=== PATIENT | female | born 1935 | race Caucasian/White ===

== ENCOUNTER 2016-05-03 14:44 | Emergency (ER) | payer MEDICARE, BC ==
[2016-05-03 16:19] LABS: BASO % 0.6 % (0-6); GRAN % 65.7 % (47-80); HEMATOCRIT 36.5 % (35.0-47.0); HEMOGLOBIN 12.3 gm/dl (11.6-16.0); LYMPH % 20.4 % (16-45); MEAN CELL VOLUME 92.4 fl (81-97); MEAN CORPUSCULAR HEMOGLOBIN 31.1 pg (27-33); MEAN CORPUSCULAR HGB CONC 33.7 g/dl (32-36); MEAN PLATELET VOLUME 10.9 fl (7.4-10.4); MONO % 12.3 % (0-9); PLATELET COUNT 187 K/uL (130-400); RED BLOOD COUNT 3.95 M/uL (3.80-5.40); RED CELL DISTRIBUTION WIDTH 13.7 % (11.5-14.5); WHITE BLOOD COUNT W/O DIFF 5.1 K/uL (4.2-12.2)
[2016-05-03 16:31] LABS: ANION GAP 6.3 (7-16); BLOOD UREA NITROGEN 19 mg/dL (7-17); CARBON DIOXIDE 30.7 mmol/L (22-30); CREATININE 0.6 mg/dL (0.52-1.04); EST GLOMERULAR FILTRATION RATE > 60 ml/min; GLUCOSE,RANDOM 80 mg/dL (70-110)
[2016-05-03] MEDS ORDERED: 0.9% SODIUM CHLORIDE 250ML BAG IV ONE (16:47)
[2016-05-03 17:07] LABS: URINE APPEARANCE CLEAR; URINE BILIRUBIN NEGATIVE (NEGATIVE); URINE BLOOD NEGATIVE (NEGATIVE); URINE COLOR YELLOW; URINE GLUCOSE (UA) NEGATIVE (NEGATIVE); URINE KETONE NEGATIVE (NEGATIVE); URINE LEUKOCYTE ESTERASE NEGATIVE (NEGATIVE); URINE NITRITE NEGATIVE (NEGATIVE); URINE PROTEIN NEGATIVE (NEGATIVE); URINE UROBILINOGEN 0.2 E.U./dL (0.20 - 1.00)
--- NOTE | 2016-05-03 17:33 | Emergency Department Record ---
History of Present Illness - General Chief complaint: Female Urogenital Problem Stated complaint: UTI Time Seen by Provider: 05/03/16 15:57 Source: Patient Mode of Arrival: Ambulatory Limitations: No limitations - History of Present Illness Initial comments: pt had bout of confusion this am and daughter is concerned that her sodium might be low. she did start a new medication [remeron]. daughter thought she also might have a uti Onset/Timin -: Days(s) Severity: Mild Improves with: None Worsens with: None Patient : No Associated Symptoms: Other (confusion) - Related Data Sexually active: No Home Medications Medication Instructions Recorded Confirmed Last Taken Aspirin Chewable 81 mg PO QPM 01/20/16 05/03/16 01/20/16 Demeclocycline HCl 300 mg PO DAILY tab 04/29/16 05/03/16 Unknown Allergies Allergy/AdvReac Type Severity Reaction Status Date / Time hydrocodone bitartrate Allergy Severe RAPID Unverified 04/29/16 11:00 [From Vicodin] HEART RATE Iodinated Contrast Media - Allergy Severe DIFFICULTY Unverified 04/29/16 11:00 Oral and BREATHING morphine Allergy Severe DIFFICULTY Unverified 04/29/16 11:00 BREATHING Penicillins Allergy Intermediate RASH Unverified 04/29/16 11:00 meperidine HCl [From Demerol] Allergy Mild VOMITING Unverified 04/29/16 11:00 codeine Allergy Unknown PT UNSURE Unverified 04/29/16 11:00 OF REACTION diazepam [From Valium] AdvReac Severe ALTERED Unverified 04/29/16 11:00 MENTAL STATUS Travel Screening - Travel/Exposure Within Last 30 Days Have you traveled within the last 30 days?: No Review of Systems Reviewed: No additional complaints except as noted below Constitutional: Reports: As per HPI. Denies: Chills, Fever, Malaise, Night sweats, Weakness, Weight change Eyes: Reports: As per HPI. Denies: Eye discharge, Eye pain, Photophobia, Vision change ENT: Reports: As per HPI. Denies: Congestion, Dental pain, Ear pain, Epistaxis , Hearing loss, Throat pain Respiratory: Reports: As per HPI. Denies: Cough, Dyspnea, Hemoptysis, Stridor, Wheezes Cardiovascular: Reports: As per HPI. Denies: Arrhythmia, Chest pain, Dyspnea on exertion, Edema, Murmurs, Orthopnea, Palpitations, Paroxysmal nocturnal dyspnea, Rheumatic Fever, Syncope Endocrine: Reports: As per HPI. Denies: Fatigue, Heat or cold intolerance, Polydipsia, Polyuria Gastrointestinal: Reports: As per HPI. Denies: Abdominal pain, Constipation, Diarrhea, Hematemesis, Hematochezia, Melena, Nausea, Vomiting Genitourinary: Reports: As per HPI. Denies: Abnormal menses, Discharge, Dyspareunia, Dysuria, Frequency, Hematuria, Incontinence, Retention, Urgency Musculoskeletal: Reports: As per HPI. Denies: Arthralgia, Back pain, Gout, Joint swelling, Myalgia, Neck pain Skin: Reports: As per HPI. Denies: Bruising, Change in color, Change in hair/ nails, Lesions, Pruritus, Rash Neurological: Reports: As per HPI. Denies: Abnormal gait, Confusion, Headache, Numbness, Paresthesias, Seizure, Tingling, Tremors, Vertigo, Weakness Psychiatric: Reports: As per HPI. Denies: Anxiety, Auditory hallucinations, Depression, Homicidal thoughts, Suicidal thoughts, Visual hallucinations Hematological/Lymphatic: Reports: As per HPI. Denies: Anemia, Blood Clots, Easy bleeding, Easy bruising, Swollen glands Past Medical History - SOCIAL HISTORY Smoking Status: Never smoker Alcohol Use: None Drug Use: None - RESPIRATORY Hx Respiratory Disorders: Yes Hx Sleep Apnea: Yes - CARDIOVASCULAR Hx Cardio Disorders: Yes Hx Hypertension: Yes - NEURO Hx Neuro Disorders: Yes Hx CVA: Yes (2009) Hx Headaches: Yes Hx Neuropathy: Yes Comment:: "my mind is going out on me"(01-27) - GI Hx GI Disorders: Yes Hx Abdominal Pain: Yes Hx Irritable Bowel: Yes Hx Nausea/Vomiting: Yes Hx Wt Loss/Wt Gain: Yes - Hx Genitourinary Disorders: Yes Hx Renal Disease: Yes (recent) - ENDOCRINE Hx Endocrine Disorders: Yes Hx Thyroid Disease: Yes (low) - MUSCULOSKELETAL Hx Musculoskeletal Disorders: Yes Hx Arthritis: Yes Hx Osteoporosis: Yes - PSYCH Hx Psych Problems: Yes Hx Anxiety: Yes Hx Depression: Yes - HEMATOLOGY/ONCOLOGY Hx Hematology/Oncology Disorders: No Family Medical History Any Significant Family History?: Yes Hx Diabetes: Father Physical Exam - General General Appearance: Alert, Oriented x3, Cooperative, No acute distress - Head Head exam: Normal inspection - Eye Eye exam: Normal appearance, PERRL, EOMI Pupils: Normal accommodation - ENT ENT exam: Normal exam, Mucous membranes moist, Normal external ear exam, Normal orophraynx Ear exam: Normal external inspection. negative: External canal tenderness Nasal Exam: Normal inspection. negative: Discharge, Sinus tenderness Mouth exam: Normal external inspection, Tongue normal Teeth exam: Normal inspection. negative: Dental caries Throat exam: Normal inspection. negative: Tonsillar erythema, Tonsillar exudate - Neck Neck exam: Normal inspection, Full ROM. negative: Tenderness - Respiratory Respiratory exam: Normal lung sounds bilaterally. negative: Respiratory distress - Cardiovascular Cardiovascular Exam: Regular rate, Normal rhythm, Normal heart sounds - GI/Abdominal GI/Abdominal exam: Soft, Normal bowel sounds. negative: Tenderness - Rectal Rectal exam: Deferred - exam: Deferred - Extremities Extremities exam: Normal inspection, Full ROM, Normal capillary refill. negative: Tenderness - Back Back exam: Reports: Normal inspection, Full ROM. Denies: Muscle spasm, Rash noted, Tenderness - Neurological Neurological exam: Alert, Normal gait, Oriented X3, Reflexes normal - Psychiatric Psychiatric exam: Normal affect, Normal mood - Skin Skin exam: Dry, Intact, Normal color, Warm Course Vital Signs 05/03/16 14:58 Temperature 97.8 F Pulse Rate 75 Respiratory 20 Rate Blood Pressure 133/79 Pulse Ox 100 - Reevaluation(s) Reevaluation #1: 05/03/16 17:31 pt is axox3. confusion is cleared. d/w dr phelps. remeron being stopped Medical Decision Making - Lab Data Result diagrams: 05/03/16 16:05 05/03/16 16:05 Lab Results 05/03/16 05/03/16 05/03/16 Range/Units 14:57 16:05 16:05 WBC 5.1 (4.2-12.2) K/uL RBC 3.95 (3.80-5.40) M/uL Hgb 12.3 (11.6-16.0) gm/dl Hct 36.5 (35.0-47.0) % MCV 92.4 (81-97) fl MCH 31.1 (27-33) pg MCHC 33.7 (32-36) g/dl RDW 13.7 (11.5-14.5) % Plt Count 187 (130-400) K/uL MPV 10.9 H (7.4-10.4) fl Gran % 65.7 (47-80) % Lymphocytes % 20.4 (16-45) % Monocytes % 12.3 H (0-9) % Eosinophils % 1.0 (0-6) % Basophils % 0.6 (0-6) % Sodium 128 L (136-145) mmol/L Potassium 4.0 (3.5-5.1) mmol/L Chloride 91 L (98-107) mmol/L Carbon Dioxide 30.7 H (22-30) mmol/L Anion Gap 6.3 L (7-16) BUN 19 H (7-17) mg/dL Creatinine 0.6 (0.52-1.04) mg/dL Estimated GFR > 60 ml/min Random Glucose 80 (70-110) mg/dL Calcium 8.4 L (8.5-10.1) mg/dL Urine Color Cancelled Urine Appearance Cancelled Urine pH Cancelled Ur Specific [place] Cancelled Urine Protein Cancelled Urine Glucose (UA) Cancelled Urine Clinitest Cancelled Urine Ketones Cancelled Urine Blood Cancelled Urine Nitrite Cancelled Urine Bilirubin Cancelled Urine Ictotest Cancelled Prot Sulfosalicylic Acd Cancelled Urine Urobilinogen Cancelled Ur Leukocyte Esterase Cancelled 05/03/16 Range/Units 17:00 WBC (4.2-12.2) K/uL RBC (3.80-5.40) M/uL Hgb (11.6-16.0) gm/dl Hct (35.0-47.0) % MCV (81-97) fl MCH (27-33) pg MCHC (32-36) g/dl RDW (11.5-14.5) % Plt Count (130-400) K/uL MPV (7.4-10.4) fl Gran % (47-80) % Lymphocytes % (16-45) % Monocytes % (0-9) % Eosinophils % (0-6) % Basophils % (0-6) % Sodium (136-145) mmol/L Potassium (3.5-5.1) mmol/L Chloride (98-107) mmol/L Carbon Dioxide (22-30) mmol/L Anion Gap (7-16) BUN (7-17) mg/dL Creatinine (0.52-1.04) mg/dL Estimated GFR ml/min Random Glucose (70-110) mg/dL Calcium (8.5-10.1) mg/dL Urine Color Yellow Urine Appearance Clear Urine pH 7.0 Ur Specific [place] 1.010 Urine Protein Negative Urine Glucose (UA) Negative Urine Clinitest Urine Ketones Negative Urine Blood Negative Urine Nitrite Negative Urine Bilirubin Negative Urine Ictotest Prot Sulfosalicylic Acd Urine Urobilinogen 0.2 Ur Leukocyte Esterase Negative Disposition Disposition: Discharge Clinical Impression: Transient confusion, Medication adverse effect Disposition: Home, Self-Care Condition: (1) Good Instructions: Mirtazapine (By mouth), Altered Mental Status (ED) Additional Instructions: stop mirtazepine. follow up with family doctor. return sooner if worse Forms: Patient Portal Access
== END 2016-05-03 17:45 | disposition home or self-care (01) ==
LOC: ER 14:44
DX: R41.0 Disorientation, unspecified (principal); T43.025A Adverse effect of tetracyclic antidepressants, initial encounter; I10 Essential (primary) hypertension; Z86.73 Personal history of transient ischemic attack (TIA), and cerebral infarction without residual deficits
CPT/HCPCS: 80048; 81003; 85025; 99283

== ENCOUNTER 2016-05-04 06:41 | Inpatient (IN) | payer MEDICARE, BC ==
[2016-05-04 08:21] LABS: BASO % 0.6 % (0-6); EOS % 0.6 % (0-6); GRAN % 77.1 % (47-80); HEMATOCRIT 36.6 % (35.0-47.0); HEMOGLOBIN 12.4 gm/dl (11.6-16.0); LYMPH % 13.9 % (16-45); MEAN CORPUSCULAR HEMOGLOBIN 30.8 pg (27-33); MEAN CORPUSCULAR HGB CONC 33.9 g/dl (32-36); MEAN PLATELET VOLUME 10.9 fl (7.4-10.4); MONO % 7.8 % (0-9); PLATELET COUNT 199 K/uL (130-400); RED BLOOD COUNT 4.02 M/uL (3.80-5.40); RED CELL DISTRIBUTION WIDTH 13.7 % (11.5-14.5); WHITE BLOOD COUNT W/O DIFF 6.3 K/uL (4.2-12.2)
[2016-05-04 08:22] LABS: URINE APPEARANCE CLEAR; URINE BILIRUBIN NEGATIVE (NEGATIVE); URINE BLOOD TRACE-I (NEGATIVE); URINE COLOR YELLOW; URINE GLUCOSE (UA) NEGATIVE (NEGATIVE); URINE KETONE NEGATIVE (NEGATIVE); URINE LEUKOCYTE ESTERASE NEGATIVE (NEGATIVE); URINE NITRITE NEGATIVE (NEGATIVE); URINE PROTEIN NEGATIVE (NEGATIVE); URINE UROBILINOGEN 0.2 E.U./dL (0.20 - 1.00)
--- NOTE | 2016-05-04 08:24 | Emergency Department Record ---
Anxiety - General Chief Complaint: Panic attack Stated Complaint: PANIC ATTACK Time Seen by Provider: 05/04/16 07:08 Source: Patient, EMS Mode of Arrival: EMS Limitations: Altered mental status - History of Present Illness Initial Comments: pt woke up confused. pt recently stopped xanax 2 wks ago and started remeron. pt was here yesterday aracelis confusion which cleared and remeron was stopped. last dose was yesterday am. Complaint: Anxiety Onset/Timin -: Days(s) Place: Home Improves With: Nothing Worsens With: Nothing Associated symptoms: Confusion - Related Data Home Medications: Home Medications Medication Instructions Recorded Confirmed Last Taken Aspirin Chewable 81 mg PO QPM 01/20/16 05/04/16 05/04/16 Demeclocycline HCl 300 mg PO DAILY tab 04/29/16 05/04/16 05/04/16 Allergies/Adverse Reactions: Allergies Allergy/AdvReac Type Severity Reaction Status Date / Time hydrocodone bitartrate Allergy Severe RAPID Unverified 04/29/16 11:00 [From Vicodin] HEART RATE Iodinated Contrast Media - Allergy Severe DIFFICULTY Unverified 04/29/16 11:00 Oral and BREATHING morphine Allergy Severe DIFFICULTY Unverified 04/29/16 11:00 BREATHING Penicillins Allergy Intermediate RASH Unverified 04/29/16 11:00 meperidine HCl [From Demerol] Allergy Mild VOMITING Unverified 04/29/16 11:00 codeine Allergy Unknown PT UNSURE Unverified 04/29/16 11:00 OF REACTION diazepam [From Valium] AdvReac Severe ALTERED Unverified 04/29/16 11:00 MENTAL STATUS Travel Screening - Travel/Exposure Within Last 30 Days Have you traveled within the last 30 days?: No - Travel/Exposure Within Last Year Have you traveled outside the [place] in the last year?: No - Additonal Travel Details Have you been exposed to anyone with a communicable illness?: No Review of Systems Reviewed: No additional complaints except as noted below Constitutional: Reports: As per HPI. Denies: Chills, Fever, Malaise, Night sweats, Weakness, Weight change Eyes: Reports: As per HPI. Denies: Eye discharge, Eye pain, Photophobia, Vision change ENT: Reports: As per HPI. Denies: Congestion, Dental pain, Ear pain, Epistaxis , Hearing loss, Throat pain Respiratory: Reports: As per HPI. Denies: Cough, Dyspnea, Hemoptysis, Stridor, Wheezes Cardiovascular: Reports: As per HPI. Denies: Arrhythmia, Chest pain, Dyspnea on exertion, Edema, Murmurs, Orthopnea, Palpitations, Paroxysmal nocturnal dyspnea, Rheumatic Fever, Syncope Endocrine: Reports: As per HPI. Denies: Fatigue, Heat or cold intolerance, Polydipsia, Polyuria Gastrointestinal: Reports: As per HPI. Denies: Abdominal pain, Constipation, Diarrhea, Hematemesis, Hematochezia, Melena, Nausea, Vomiting Genitourinary: Reports: As per HPI. Denies: Abnormal menses, Discharge, Dyspareunia, Dysuria, Frequency, Hematuria, Incontinence, Retention, Urgency Musculoskeletal: Reports: As per HPI. Denies: Arthralgia, Back pain, Gout, Joint swelling, Myalgia, Neck pain Skin: Reports: As per HPI. Denies: Bruising, Change in color, Change in hair/ nails, Lesions, Pruritus, Rash Neurological: Reports: As per HPI. Denies: Abnormal gait, Confusion, Headache, Numbness, Paresthesias, Seizure, Tingling, Tremors, Vertigo, Weakness Psychiatric: Reports: As per HPI. Denies: Anxiety, Auditory hallucinations, Depression, Homicidal thoughts, Suicidal thoughts, Visual hallucinations Hematological/Lymphatic: Reports: As per HPI. Denies: Anemia, Blood Clots, Easy bleeding, Easy bruising, Swollen glands Past Medical History - SOCIAL HISTORY Smoking Status: Never smoker Alcohol Use: None Drug Use: None - RESPIRATORY Hx Respiratory Disorders: Yes Hx Sleep Apnea: Yes - CARDIOVASCULAR Hx Cardio Disorders: Yes Hx Hypertension: Yes - NEURO Hx Neuro Disorders: Yes Hx CVA: Yes (2009) Hx Headaches: Yes Hx Neuropathy: Yes Comment:: "my mind is going out on me"(01-27) - GI Hx GI Disorders: Yes Hx Abdominal Pain: Yes Hx Irritable Bowel: Yes Hx Nausea/Vomiting: Yes Hx Wt Loss/Wt Gain: Yes - Hx Genitourinary Disorders: Yes Hx Renal Disease: Yes (recent) - ENDOCRINE Hx Endocrine Disorders: Yes Hx Thyroid Disease: Yes (low) - MUSCULOSKELETAL Hx Musculoskeletal Disorders: Yes Hx Arthritis: Yes Hx Osteoporosis: Yes - PSYCH Hx Psych Problems: Yes Hx Anxiety: Yes Hx Depression: Yes - HEMATOLOGY/ONCOLOGY Hx Hematology/Oncology Disorders: No Family Medical History Any Significant Family History?: No Hx Diabetes: Father Physical Exam - General General Appearance: Alert, Cooperative, Moderate distress - Head Head exam: Normal inspection - Eye Eye exam: Normal appearance, PERRL, EOMI Pupils: Normal accommodation - ENT ENT exam: Normal exam, Mucous membranes moist, Normal external ear exam, Normal orophraynx Ear exam: Normal external inspection. negative: External canal tenderness Nasal Exam: Normal inspection. negative: Discharge, Sinus tenderness Mouth exam: Normal external inspection, Tongue normal Teeth exam: Normal inspection. negative: Dental caries Throat exam: Normal inspection. negative: Tonsillar erythema, Tonsillar exudate - Neck Neck exam: Normal inspection, Full ROM. negative: Tenderness - Respiratory Respiratory exam: Normal lung sounds bilaterally. negative: Respiratory distress - Cardiovascular Cardiovascular Exam: Normal rhythm, Normal heart sounds, Tachycardia - GI/Abdominal GI/Abdominal exam: Soft, Normal bowel sounds. negative: Tenderness - Rectal Rectal exam: Deferred - exam: Deferred - Extremities Extremities exam: Normal inspection, Full ROM, Normal capillary refill. negative: Tenderness - Back Back exam: Reports: Normal inspection, Full ROM. Denies: Muscle spasm, Rash noted, Tenderness - Neurological Neurological exam: Alert, CN II-XII intact, Normal gait - Psychiatric Psychiatric exam: Normal affect, Normal mood - Skin Skin exam: Dry, Intact, Normal color, Warm Course Vital Signs 05/04/16 06:42 Temperature 98.4 F Pulse Rate 105 H Respiratory 20 Rate Blood Pressure 168/94 Pulse Ox 96 Medical Decision Making - Management Options MDM Management: Additional Work-up Planned (e.g. ADM/Transfer/OP Study) - Data Complexity MDM Data: Labs Ordered and/or Reviewed, X-Ray Ordered and/or Reviewed - Lab Data Result diagrams: 05/04/16 08:19 05/04/16 08:19 - Radiology Data Radiology results: Report reviewed, Image reviewed Disposition Disposition: Admit Clinical Impression: Change in mental status Qualifiers: Altered mental status type: delirium Qualified Code(s): R41.0 - Disorientation , unspecified Disposition: Still a Patient at [facility] Decision to Admit: Admit from ER Decision to Admit Date: 05/04/16 Decision to Admit Time: 09:51 Forms: Patient Portal Access
[2016-05-04 08:28] LABS: AMPHETAMINE SCREEN URINE NOT DETECTED; BARBITURATE SCREEN URINE NOT DETECTED; BENZODIAZEPINE SCREEN URINE NOT DETECTED; COCAINE SCREEN URINE NOT DETECTED; METHADONE SCREEN URINE NOT DETECTED; METHAMPHETAMINE SCREEN NOT DETECTED; OPIATE SCREEN URINE NOT DETECTED; OXYCODONE SCREEN URINE NOT DETECTED; PHENCYCLIDINE SCREEN URINE NOT DETECTED; PROPOXYPHENE SCREEN URINE NOT DETECTED; THC SCREEN URINE NOT DETECTED; TRICYCLIC ANTIDEPRESSANT SCRN NOT DETECTED
[2016-05-04 08:34] LABS: URINE BACTERIA NONE SEEN; URINE SQUAMOUS EPITHELIAL CELL 0 - 2 /hpf; URINE WBC 0 - 2 (0-2/hpf)
[2016-05-04 08:37] LABS: ALB/GLOB RATIO 1.4 (1.1-1.8); ALBUMIN 4.2 gm/dL (3.5-5.0); ALKALINE PHOSPHATASE 57 U/L (38-126); ALT/SGPT 30 U/L (9-52); ANION GAP 11.6 (7-16); AST/SGOT 35 U/L (14-36); BILIRUBIN,TOTAL 0.44 mg/dL (0.2-1.3); BLOOD UREA NITROGEN 18 mg/dL (7-17); CARBON DIOXIDE 26.4 mmol/L (22-30); CREATININE 0.5 mg/dL (0.52-1.04); EST GLOMERULAR FILTRATION RATE > 60 ml/min; GLUCOSE,RANDOM 93 mg/dL (70-110); TOTAL PROTEIN 7.1 gm/dL (6.3-8.2)
[2016-05-04 08:38] LABS: ACETAMINOPHEN < 10.0 ug/mL (10.0-30.0)
[2016-05-04 08:54] LABS: T3 UPTAKE 36.5 % (23.5-40.5)
[2016-05-04] MEDS ORDERED: LORAZEPAM 2 MG/ML VIAL IV ONE (08:59)
[2016-05-04 09:08] LABS: THYROID STIMULATING HORMONE 1.86 uIU/ml (0.465-4.68)
[2016-05-04] MEDS ORDERED: LEVOTHYROXINE SODIUM 75 MCG TABLET PO SCH (12:10)
--- NOTE | 2016-05-04 12:31 | History & Physical ---
History of Present Illness - Date of Service Date of Service for History & Physical: 05/05/16 - History of Present Illness Admitting Diagnosis: altered mental status History of Present Illness: Laura Sultana is an 81 y/o female well know to practice with episode of confusion yesterday and this am. Came to ED yesterday for change mental status and discharge home with new order to DC Remeron. Returned to ED this am for continued confusion. Known history of hyponatremia and anxiety. Na levels have been low but steady with last Family Practice follow up last week. Travel Screening - Travel/Exposure Within Last 30 Days Have you traveled within the last 30 days?: No - Travel/Exposure Within Last Year Have you traveled outside the [place] in the last year?: No - Additonal Travel Details Have you been exposed to anyone with a communicable illness?: No - Travel Symptoms Symptom Screening: None Review of Systems Reviewed: No additional complaints except as noted below Constitutional: Reports: As per HPI. Denies: Chills, Fever, Malaise, Night sweats, Weakness, Weight change Eyes: Reports: As per HPI. Denies: Eye discharge, Eye pain, Photophobia, Vision change ENT: Reports: As per HPI. Denies: Congestion, Dental pain, Ear pain, Epistaxis , Hearing loss, Throat pain Respiratory: Reports: As per HPI. Denies: Cough, Dyspnea, Hemoptysis, Stridor, Wheezes Cardiovascular: Reports: As per HPI. Denies: Arrhythmia, Chest pain, Dyspnea on exertion, Edema, Murmurs, Orthopnea, Palpitations, Paroxysmal nocturnal dyspnea, Rheumatic Fever, Syncope Endocrine: Reports: As per HPI. Denies: Fatigue, Heat or cold intolerance, Polydipsia, Polyuria Gastrointestinal: Reports: As per HPI. Denies: Abdominal pain, Constipation, Diarrhea, Hematemesis, Hematochezia, Melena, Nausea, Vomiting Genitourinary: Reports: As per HPI. Denies: Abnormal menses, Discharge, Dyspareunia, Dysuria, Frequency, Hematuria, Incontinence, Retention, Urgency Musculoskeletal: Reports: As per HPI. Denies: Arthralgia, Back pain, Gout, Joint swelling, Myalgia, Neck pain Skin: Reports: As per HPI. Denies: Bruising, Change in color, Change in hair/ nails, Lesions, Pruritus, Rash Neurological: Reports: As per HPI. Denies: Abnormal gait, Confusion, Headache, Numbness, Paresthesias, Seizure, Tingling, Tremors, Vertigo, Weakness Psychiatric: Reports: As per HPI. Denies: Anxiety, Auditory hallucinations, Depression, Homicidal thoughts, Suicidal thoughts, Visual hallucinations Hematological/Lymphatic: Reports: As per HPI. Denies: Anemia, Blood Clots, Easy bleeding, Easy bruising, Swollen glands Past Medical History - SOCIAL HISTORY Smoking Status: Never smoker Alcohol Use: None Drug Use: None - RESPIRATORY Hx Respiratory Disorders: Yes Hx Sleep Apnea: Yes - CARDIOVASCULAR Hx Cardio Disorders: Yes Hx Hypertension: Yes - NEURO Hx Neuro Disorders: Yes Hx CVA: Yes (2009) Hx Headaches: Yes Hx Neuropathy: Yes Comment:: "my mind is going out on me"(01-27) - GI Hx GI Disorders: Yes Hx Abdominal Pain: Yes Hx Irritable Bowel: Yes Hx Nausea/Vomiting: Yes Hx Wt Loss/Wt Gain: Yes - Hx Genitourinary Disorders: Yes Hx Renal Disease: Yes (recent) - ENDOCRINE Hx Endocrine Disorders: Yes Hx Thyroid Disease: Yes (low) - MUSCULOSKELETAL Hx Musculoskeletal Disorders: Yes Hx Arthritis: Yes Hx Osteoporosis: Yes - PSYCH Hx Psych Problems: Yes Hx Anxiety: Yes Hx Depression: Yes - HEMATOLOGY/ONCOLOGY Hx Hematology/Oncology Disorders: No Family Medical History Any Significant Family History?: No Hx Diabetes: Father H&P Meds/Allergies - Allergies Allergies: Allergies Allergy/AdvReac Type Severity Reaction Status Date / Time hydrocodone bitartrate Allergy Severe RAPID Unverified 04/29/16 11:00 [From Vicodin] HEART RATE Iodinated Contrast Media - Allergy Severe DIFFICULTY Unverified 04/29/16 11:00 Oral and BREATHING morphine Allergy Severe DIFFICULTY Unverified 04/29/16 11:00 BREATHING Penicillins Allergy Intermediate RASH Unverified 04/29/16 11:00 meperidine HCl [From Demerol] Allergy Mild VOMITING Unverified 04/29/16 11:00 codeine Allergy Unknown PT UNSURE Unverified 04/29/16 11:00 OF REACTION diazepam [From Valium] AdvReac Severe ALTERED Unverified 04/29/16 11:00 MENTAL STATUS - Home Medications Home Medications Medication Instructions Recorded Confirmed Last Taken Aspirin Chewable 81 mg PO QPM 01/20/16 05/04/16 05/04/16 Demeclocycline HCl 300 mg PO DAILY tab 04/29/16 05/04/16 05/04/16 - Active Medications Active Medications: Current Medications Acetaminophen (Tylenol 500mg Tab) 1,000 mg PO Q6H PRN PRN Reason: PAIN/TEMP Aspirin (Aspirin Chewable) 81 mg PO QPM [facility] Levothyroxine Sodium (Synthroid) 75 mcg PO QD [facility] Physical Exam - General General Appearance: Alert, Oriented x3, Cooperative, Moderate distress, Other ( altered sense of reality, delerius) Limitations: Altered mental status - Head Head exam: Normal inspection - Eye Eye exam: Normal appearance, PERRL, EOMI Pupils: Normal accommodation - ENT ENT exam: Normal exam, Mucous membranes moist, Normal external ear exam, Normal orophraynx Ear exam: Normal external inspection. negative: External canal tenderness Nasal Exam: Normal inspection. negative: Discharge, Sinus tenderness Mouth exam: Normal external inspection, Tongue normal Teeth exam: Normal inspection. negative: Dental caries Throat exam: Normal inspection. negative: Tonsillar erythema, Tonsillar exudate - Neck Neck exam: Normal inspection, Full ROM. negative: Tenderness - Respiratory Respiratory exam: Normal lung sounds bilaterally. negative: Respiratory distress - Cardiovascular Cardiovascular Exam: Normal rhythm, Normal heart sounds, Tachycardia - GI/Abdominal GI/Abdominal exam: Soft, Normal bowel sounds. negative: Tenderness - Rectal Rectal exam: Deferred - exam: Deferred - Extremities Extremities exam: Normal inspection, Full ROM, Normal capillary refill. negative: Tenderness - Back Back exam: Reports: Normal inspection, Full ROM. Denies: Muscle spasm, Rash noted, Tenderness - Neurological Neurological exam: Alert, CN II-XII intact, Normal gait - Psychiatric Psychiatric exam: Normal affect, Normal mood - Skin Skin exam: Dry, Intact, Normal color, Warm Results - Labs Result Diagrams: 05/04/16 08:19 05/05/16 04:55 - Imaging and Cardiology CT scan - head Status: Report reviewed (1- chronic atrophy, 2- no acute intracranial process) VTE H&P Assessment - Risk for VTE Risk for VTE: Yes Risk Level: Low Risk Assessment Date: 05/04/16 Risk Assessment Time: 12:33 VTE Orders Placed or Will Be Placed: Yes Plan - Inpatient Certification Inpatient Certification: Admit to inpatient care: Based on my medical assessment, after consideration of patient's risk factors (age, co-morbidities and patient presenting symptoms and acuity), I expect that this patient will remain in the hospital greater than or equal to two midnights and that the services needed warrant inpatient care because: Patient Risk Factors: [advanced age, acute mental status changes, medication adverse reaction] Estimated length of stay: [48-72 hrs] The patient may reasonably be expected to be discharged or transferred to a hospital within 96 hours after admission to [facility]. Services needed: [medication monitoring] Post hospital care (if known): [] I certify that my determination is in accordance with my understanding of Medicare requirements for reasonable and necessary inpatient services. 05/04/16 12:34 - Detailed Diagnosis and Plan (1) Change in mental status Current Visit: Yes Status: Acute Qualifiers: Altered mental status type: delirium Qualified Code(s): R41.0 - Disorientation, unspecified Base Code: R41.82 - ALTERED MENTAL STATUS, UNSPECIFIED Comment: 05/04/16 Likely not tolerating Remeron, will not restart Has tolerated Xanax .25mg BID PRN without adverse reaction for anxiety- Benefit of use outweighs risk Head CT with chronic appearing atrophy, no acute intracranial process (2) Hyponatremia Current Visit: Yes Status: Chronic Base Code: E87.1 - HYPO-OSMOLALITY AND HYPONATREMIA Comment: 05/04/16 Chronically low Na 131 today Repeat labs in am (3) Hypothyroidism Current Visit: Yes Status: Chronic Base Code: E03.9 - HYPOTHYROIDISM, UNSPECIFIED Comment: 05/05/16 chronic T4 12.00 in ER with normal TSH Will restart Levothyroixine 50mcg QD T4 this am (4) DVT prophylaxis Current Visit: Yes Status: Acute Base Code: [id number] - Comment: 04/30/16 SCD ordered (5) DNR (do not resuscitate) Current Visit: Yes Status: Acute Base Code: Z66 - DO NOT RESUSCITATE
[2016-05-04] MEDS: ALPRAZOLAM 0.25 MG TABLET PO PRN ×2 (15:00→21:41)
[2016-05-04] MEDS: ACETAMINOPHEN 500 MG TABLET PO PRN (15:00)
[2016-05-04] MEDS ORDERED: ASPIRIN 81 MG TABEC PO SCH (22:00)
[2016-05-05] MEDS: ACETAMINOPHEN 500 MG TABLET PO PRN ×2 (03:50→09:32)
[2016-05-05] MEDS ORDERED: LABETALOL HCL 5MG/ML, 20ML VIAL IV ONE (04:51)
[2016-05-05 05:27] LABS: ALB/GLOB RATIO 1.4 (1.1-1.8); ALBUMIN 4.3 gm/dL (3.5-5.0); ALKALINE PHOSPHATASE 57 U/L (38-126); ALT/SGPT 32 U/L (9-52); AST/SGOT 41 U/L (14-36); BILIRUBIN,TOTAL 0.59 mg/dL (0.2-1.3); BLOOD UREA NITROGEN 13 mg/dL (7-17); CREATININE 0.5 mg/dL (0.52-1.04); EST GLOMERULAR FILTRATION RATE > 60 ml/min; GLUCOSE,RANDOM 91 mg/dL (70-110); TOTAL PROTEIN 7.3 gm/dL (6.3-8.2)
--- NOTE | 2016-05-05 07:29 | CT SCAN REPORT ---
EXAM: HEAD CT WITHOUT CONTRAST HISTORY: CONFUSION, PATIENT NOT MAKING ANY SENSE. TECHNIQUE: Axial CT scan of the head was performed without IV contrast. Comparison: Head CT dated 01/24/16. FINDINGS: No definite acute intracranial hemorrhage is identified. No focal mass effect or midline shift apparent. Generalized atrophy with chronic appearing deep white matter changes as before, nonspecific, but likely representing some chronic small vessel deep white matter ischemic disease. No definite acute infarct or intracranial mass lesion is seen. No depressed calvarial fracture evident. Some membrane thickening in the sphenoid sinus and also in the left ethmoid sinus. No depressed calvarial fracture is evident. IMPRESSION: 1. GENERALIZED ATROPHY WITH CHRONIC APPEARING DEEP WHITE MATTER CHANGES. 2. NO DEFINITE ACUTE INTRACRANIAL HEMORRHAGE OR FOCAL MASS EFFECT EVIDENT. 3. SOME MEMBRANE THICKENING IN THE SPHENOID AND LEFT ETHMOID SINUSES. JOB NUMBER: [id number] MTDD
[2016-05-05] MEDS: ALPRAZOLAM 0.25 MG TABLET PO PRN (09:35)
[2016-05-05] MEDS ORDERED: LEVOTHYROXINE SODIUM 75 MCG TABLET PO SCH (10:00)
--- NOTE | 2016-05-05 11:14 | Physician Progress Note ---
Subjective - Date Date of Physician Progress Note: 05/05/16 - Subjective Subjective Comment: Continues with altered mental status with statements such as " Albin Cruz is after my credit cards because he needs money", continues to refer to Dr Ma as her "sister", verbalizes wanting to "walk out of here" to look for an apartment in [place], accusing son of coming to the ER drunk and being kicked out (she was brought in by EMS). Objective - Multidiciplinary Team Multidiciplinary Team: Nursing, Social Work - Vital Signs Vital Signs: Vital Signs - Last 24 Hrs Temp Pulse Pulse Pulse Resp BP BP 05/05/16 09:00 82 89 20 05/05/16 08:42 98.3 F 82 20 146/92 05/05/16 04:00 89 20 189/114 05/04/16 20:47 98.2 F 71 18 121/61 05/04/16 20:28 20 05/04/16 12:37 87 24 05/04/16 11:25 97.7 F 102 H 16 129/75 Pulse Ox 05/05/16 09:00 05/05/16 08:42 97 05/05/16 04:00 99 05/04/16 20:47 98 05/04/16 20:28 05/04/16 12:37 05/04/16 11:25 95 - General General Appearance: Alert, Cooperative, Moderate distress (oriented to person only, is emotionally distressed, anxious), Other (altered sense of reality, delerius) Limitations: Altered mental status - Head Head exam: Normal inspection Head exam detail: Contusion (mild contusion right side of forehead near mandaeism, age of injury unknown, no documented falls since admission). negative: Hematoma , Laceration, [place] eyes - Eye Eye exam: Normal appearance, PERRL, EOMI Pupils: Normal accommodation - ENT ENT exam: Normal exam, Mucous membranes moist, Normal external ear exam, Normal orophraynx Ear exam: Normal external inspection. negative: External canal tenderness Nasal Exam: Normal inspection. negative: Discharge, Sinus tenderness Mouth exam: Normal external inspection, Tongue normal Teeth exam: Normal inspection. negative: Dental caries Throat exam: Normal inspection. negative: Tonsillar erythema, Tonsillar exudate - Neck Neck exam: Normal inspection, Full ROM. negative: Tenderness - Respiratory Respiratory exam: Normal lung sounds bilaterally. negative: Respiratory distress - Cardiovascular Cardiovascular Exam: Normal rhythm, Normal heart sounds, Tachycardia - GI/Abdominal GI/Abdominal exam: Soft, Normal bowel sounds. negative: Tenderness - Rectal Rectal exam: Deferred - exam: Deferred - Extremities Extremities exam: Normal inspection, Full ROM, Normal capillary refill. negative: Tenderness - Back Back exam: Reports: Normal inspection, Full ROM. Denies: Muscle spasm, Rash noted, Tenderness - Neurological Neurological exam: Alert, CN II-XII intact, Normal gait - Psychiatric Psychiatric exam: Agitated, Anxious - Skin Skin exam: Dry, Intact, Normal color, Warm Assessment and Plan - Assessment and Plan (1) Change in mental status Current Visit: Yes Status: Acute Qualifiers: Altered mental status type: delirium Qualified Code(s): R41.0 - Disorientation, unspecified Base Code: R41.82 - ALTERED MENTAL STATUS, UNSPECIFIED Comment: 05/05/16 Continued alteration mental status, poor safety awareness, inablity to perform ADLs. Was started on Remeron last week to aide in improving appetite with a safer medication profile for the elderly Likely is experiencing medication effect from that as medical etiology has been ruled out with continued change in mental status. CT head performed in ER shows atrophy with likely an undiagnsed underlying dementia. Anticipate discharge to [facility] for further management (2) Hyponatremia Current Visit: Yes Status: Chronic Base Code: E87.1 - HYPO-OSMOLALITY AND HYPONATREMIA Comment: 05/05/16 Chronically low, medical etiology has been ruled out as cause for change in mental status, has in the past tolerated low sodium levels with no change in mentation. Na today 132 (3) Hypothyroidism Current Visit: Yes Status: Chronic Base Code: E03.9 - HYPOTHYROIDISM, UNSPECIFIED Comment: 05/05/16 chronic T4 12.00 in ER with normal TSH Will restart Levothyroixine 50mcg QD T4 this am normal (4) DVT prophylaxis Current Visit: Yes Status: Acute Base Code: [id number] - Comment: 04/30/16 SCD ordered (5) DNR (do not resuscitate) Current Visit: Yes Status: Acute Base Code: Z66 - DO NOT RESUSCITATE Results - Labs Result Diagrams: 05/04/16 08:19 05/05/16 04:55 Labs Last 24 Hours: Laboratory Results - last 24 hr 05/05/16 05/05/16 04:55 04:55 Sodium 132 L Potassium 4.0 Chloride 92 L Carbon Dioxide 28.0 Anion Gap 12.0 BUN 13 Creatinine 0.5 L Estimated GFR > 60 Random Glucose 91 Calcium 9.2 Total Bilirubin 0.59 AST 41 H ALT 32 Alkaline Phosphatase 57 Total Protein 7.3 Albumin 4.3 Globulin 3.0 Albumin/Globulin Ratio 1.4 Thyroxine (T4) 9.96 DVT/PE Assessment - Risk for VTE Risk for VTE: No Risk Level: Low Risk Assessment Date: 05/04/16 Risk Assessment Time: 12:33 VTE Orders Placed or Will Be Placed: Yes - Active Medicaitons Current Medications: Current Medications Acetaminophen (Tylenol 500mg Tab) 1,000 mg PO Q6H PRN PRN Reason: PAIN/TEMP Last Admin: 05/05/16 09:32 Dose: 1,000 mg Alprazolam (Xanax) 0.25 mg PO BID PRN PRN Reason: ANXIETY Last Admin: 05/05/16 09:35 Dose: 0.25 mg Aspirin (Ecotrin (Ec)) 81 mg PO QHS [facility] Last Admin: 05/04/16 21:42 Dose: 81 mg Levothyroxine Sodium (Synthroid) 75 mcg PO DAILYTHY [facility] Last Admin: 05/05/16 10:30 Dose: 75 mcg AMI Plan - Labs Result Diagrams: 05/04/16 08:19 05/05/16 04:55
--- NOTE | 2016-05-05 14:25 | Discharge Summary ---
Providers Discharge Summary Date: 05/05/16 Date of admission: 05/04/16 11:21 Expected Date of Discharge: 05/05/16 Attending physician: [place] Physical Exam - Vital Signs Vital Signs: Vital Signs - Last 24 Hrs Temp Pulse Pulse Resp BP BP Pulse Ox 05/05/16 09:00 82 89 20 05/05/16 08:42 98.3 F 82 20 146/92 97 05/05/16 04:00 89 20 189/114 99 05/04/16 20:47 98.2 F 71 18 121/61 98 05/04/16 20:28 20 - General General Appearance: Alert, Cooperative, Moderate distress (oriented to person only, is emotionally distressed, anxious), Other (altered sense of reality, delerius) Limitations: Altered mental status - Head Head exam: Normal inspection Head exam detail: Contusion (mild contusion right side of forehead near mandaeism, age of injury unknown, no documented falls since admission). negative: Hematoma , Laceration, [place] eyes - Eye Eye exam: Normal appearance, PERRL, EOMI Pupils: Normal accommodation - ENT ENT exam: Normal exam, Mucous membranes moist, Normal external ear exam, Normal orophraynx Ear exam: Normal external inspection. negative: External canal tenderness Nasal Exam: Normal inspection. negative: Discharge, Sinus tenderness Mouth exam: Normal external inspection, Tongue normal Teeth exam: Normal inspection. negative: Dental caries Throat exam: Normal inspection. negative: Tonsillar erythema, Tonsillar exudate - Neck Neck exam: Normal inspection, Full ROM. negative: Tenderness - Respiratory Respiratory exam: Normal lung sounds bilaterally. negative: Respiratory distress - Cardiovascular Cardiovascular Exam: Normal rhythm, Normal heart sounds, Tachycardia - GI/Abdominal GI/Abdominal exam: Soft, Normal bowel sounds. negative: Tenderness - Rectal Rectal exam: Deferred - exam: Deferred - Extremities Extremities exam: Normal inspection, Full ROM, Normal capillary refill. negative: Tenderness - Back Back exam: Reports: Normal inspection, Full ROM. Denies: Muscle spasm, Rash noted, Tenderness - Neurological Neurological exam: Alert, CN II-XII intact, Normal gait - Psychiatric Psychiatric exam: Agitated, Anxious - Skin Skin exam: Dry, Intact, Normal color, Warm Hospitalization - Hospitalization Admission Diagnosis: altered mental status - Problem List/Discharge Diagnosis (1) Change in mental status Current Visit: Yes Status: Acute Discharge Diagnosis: Altered mental status type: delirium Qualified Code(s): R41.0 - Disorientation, unspecified Base Code: R41.82 - ALTERED MENTAL STATUS, UNSPECIFIED Comment: 05/05/16 Continued alteration mental status, poor safety awareness, inablity to perform ADLs. Was started on Remeron last week to aide in improving appetite with a safer medication profile for the elderly. Likely is experiencing medication effect from that as medical etiology has been ruled out with continued change in mental status. CT head performed in ER shows atrophy with likely an undiagnsed underlying dementia. Daughter mentioned today that patient has been declining for 9 months (this was not previously brought up in clinic or inpatient yesterday). Will discharge to [facility] for further management. (2) Hyponatremia Current Visit: Yes Status: Chronic Base Code: E87.1 - HYPO-OSMOLALITY AND HYPONATREMIA Comment: 05/05/16 Chronically low, medical etiology has been ruled out as cause for change in mental status, has in the past tolerated low sodium levels with no change in mentation. Na today 132. See nephrology outpatient. (3) Hypothyroidism Current Visit: Yes Status: Chronic Base Code: E03.9 - HYPOTHYROIDISM, UNSPECIFIED Comment: 05/05/16 chronic continue Levothyroixine 50mcg QD (4) Medication adverse effect Current Visit: No Status: Acute Base Code: T88.7XXA - UNSP ADVERSE EFFECT OF DRUG OR MEDICAMENT, INIT ENCNTR Comment: 05/05/16- patient is sensitive to any new medication changes. Recent change included starting remeron to increase appetite, improve mood, and help with sleep. Stopped this medication two days ago. - Hospitalization Course Disposition: Inpatient Rehab Facility Abnormal Labs: Abnormal Lab Results 05/05/16 Range/Units 04:55 Sodium 132 L (136-145) mmol/L Chloride 92 L (98-107) mmol/L Creatinine 0.5 L (0.52-1.04) mg/dL AST 41 H (14-36) U/L Condition at Discharge: (3) Guarded Discharge Medications - Discharge Medications Home Medications: Ambulatory Orders Aspirin Chewable 81 mg PO QPM 01/20/16 [Last Taken 05/04/16] Demeclocycline HCl 300 mg PO DAILY tab 04/29/16 [Last Taken 05/04/16] Acetaminophen [Tylenol 500Mg Tab] 1,000 mg PO Q6H PRN #0 tablet 05/05/16 [Last Taken Unknown] Levothyroxine Sodium [Synthroid] 75 mcg PO DAILYTHY tablet 05/05/16 [Last Taken Unknown] Discharge Plan - Discharge Instructions Activity at Discharge: As Per Physical Therapy Diet at Discharge: Advance to Usual Diet
== END 2016-05-05 15:40 | DRG 948 ==
LOC: ER 06:41 → MEDSURG 11:21
PROVIDERS: ADMIT Family Medicine; ATTEND Family Medicine
DX: R41.82 Altered mental status, unspecified (principal); E87.1 Hypo-osmolality and hyponatremia; T50.905A Adverse effect of unspecified drugs, medicaments and biological substances, initial encounter; E03.9 Hypothyroidism, unspecified; Z66 Do not resuscitate
CPT/HCPCS: 93041; 99285 ×2; 94760; 85025; 80053; 36416; 81001; 84443; 84479; 84436; 70450; G0480 ×2; G0477; J2060; 80305; 80320; 80329; 99223

== ENCOUNTER 2017-06-28 16:50 | Emergency (ER) | payer MEDICARE, BC ==
--- NOTE | 2017-06-28 17:10 | Emergency Department Record ---
History of Present Illness - General Chief Complaint: Fall Injury Stated Complaint: FALL Time Seen by Provider: 06/28/17 17:05 Source: Patient Mode of Arrival: EMS Limitations: No limitations - History of Present Illness Initial Comments: 82 yo female presents after a fall off a stool from the seated position at a local care home. She was playing a game called bat the balloon. She lost her balance falling backward. She hit her head. No LOC. She denies any current pain. She is alert and conversational. She does have a history of dementia. No nausea or vomiting. No lacerations. No complaints of joint pains. She does say her hips "feel tight". No bleeding or lacerations. No anticoagulants. Complaint: Fall -: Hour(s) (1) Fall From: Chair When Fall Occurred: Unsure Fall Witnessed: No Place Fall Occurred: Home Loss of Consciousness: Unsure Prolonged Down Time?: No Location: Back, Other Severity: Moderate Severity scale (1-10): 6 Quality: Aching Associated Symptoms: Denies - [place] Coma Scale Eye Response: (4) Open spontaneously Motor Response: (6) Obeys commands Verbal Response: (5) Oriented [place] Total: 15 - Related Data Home Medications Medication Instructions Recorded Confirmed Last Taken Ascorbic Acid [Vitamin C] 1,000 mg PO DAILY 06/28/17 06/28/17 06/27/17 Ferrous Sulfate 325 mg PO DAILY 06/28/17 06/28/17 06/27/17 Levothyroxine Sodium [Synthroid] 100 mcg PO DAILYTHY 06/28/17 06/28/17 06/28/17 Sodium Chloride 1 gm PO DAILY 06/28/17 06/28/17 06/27/17 Previous Rx's Medication Instructions Recorded Acetaminophen [Tylenol 500Mg Tab] 1,000 mg PO Q6H PRN #0 tablet 05/05/16 Allergies Allergy/AdvReac Type Severity Reaction Status Date / Time hydrocodone bitartrate Allergy Severe RAPID Verified 06/28/17 16:58 [From Vicodin] HEART RATE Iodinated Contrast- Oral and Allergy Severe DIFFICULTY Verified 06/28/17 16:58 IV Dye BREATHING [Iodinated Contrast Media - Oral and] morphine Allergy Severe DIFFICULTY Verified 06/28/17 16:58 BREATHING Penicillins Allergy Intermediate RASH Verified 06/28/17 16:58 meperidine HCl [From Demerol] Allergy Mild VOMITING Verified 06/28/17 16:58 codeine Allergy Unknown PT UNSURE Verified 06/28/17 16:58 OF REACTION diazepam [From Valium] AdvReac Severe ALTERED Verified 06/28/17 16:58 MENTAL STATUS Travel Screening - Travel/Exposure Within Last 30 Days Have you traveled within the last 30 days?: No Review of Systems Constitutional: Denies: Chills, Fever, Malaise Eyes: Denies: Eye discharge, Eye pain, Vision change ENT: Denies: Congestion, Throat pain Respiratory: Denies: Cough Cardiovascular: Denies: Chest pain, Syncope Endocrine: Denies: Fatigue Gastrointestinal: Denies: Abdominal pain, Diarrhea, Nausea, Vomiting Genitourinary: Denies: Dysuria, Urgency Musculoskeletal: Denies: Arthralgia, Back pain, Joint swelling, Myalgia Skin: Denies: Bruising, Change in color, Rash Neurological: Reports: Confusion (dementia but she is pleasant, conversatonal, states she remembers the game being played.). Denies: Headache, Numbness, Paresthesias, Tingling, Vertigo, Weakness Psychiatric: Denies: Anxiety Hematological/Lymphatic: Denies: Blood Clots, Easy bleeding, Easy bruising Past Medical History - SOCIAL HISTORY Smoking Status: Never smoker Alcohol Use: None Drug Use: None - RESPIRATORY Hx Respiratory Disorders: Yes Hx Sleep Apnea: Yes - CARDIOVASCULAR Hx Cardio Disorders: Yes Hx Hypertension: Yes - NEURO Hx Neuro Disorders: Yes Hx CVA: Yes (2009) Hx Headaches: Yes Hx Neuropathy: Yes Comment:: "my mind is going out on me"(01-27) - GI Hx GI Disorders: Yes Hx Abdominal Pain: Yes Hx Irritable Bowel: Yes Hx Nausea/Vomiting: Yes Hx Wt Loss/Wt Gain: Yes - Hx Genitourinary Disorders: Yes Hx Renal Disease: Yes - ENDOCRINE Hx Endocrine Disorders: Yes Hx Thyroid Disease: Yes (low) - MUSCULOSKELETAL Hx Musculoskeletal Disorders: Yes Hx Arthritis: Yes Hx Osteoporosis: Yes - PSYCH Hx Psych Problems: Yes Hx Anxiety: Yes Hx Depression: Yes - HEMATOLOGY/ONCOLOGY Hx Hematology/Oncology Disorders: No Family Medical History Any Significant Family History?: Yes Hx Diabetes: Father Physical Exam - General General Appearance: Alert, Oriented x3, Cooperative, No acute distress Limitations: No limitations - Head Head exam: Atraumatic, Normocephalic, Normal inspection Head exam detail: negative: Abrasion, Contusion, Kay's sign, General tenderness, Hematoma, Laceration - Eye Eye exam: Normal appearance, PERRL. negative: Conjunctival injection, Periorbital swelling, Periorbital tenderness, Scleral icterus - ENT ENT exam: Normal exam, Mucous membranes moist, Normal orophraynx Ear exam: Normal external inspection Nasal Exam: Normal inspection Mouth exam: Normal external inspection Teeth exam: Normal inspection Throat exam: Normal inspection - Neck Neck exam: Normal inspection, Full ROM. negative: Tenderness - Respiratory Respiratory exam: Normal lung sounds bilaterally. negative: Accessory muscle use, Chest wall tenderness, Decreased breath sounds, Prolonged expiratory, Respiratory distress, Rhonchi, Stridor, Wheezes - Cardiovascular Cardiovascular Exam: Regular rate, Normal rhythm, Normal heart sounds Peripheral Pulses: 2+: Radial (R), Radial (L) - GI/Abdominal GI/Abdominal exam: Soft. negative: Distended, Guarding, Rebound, Rigid, Tenderness - Rectal Rectal exam: Deferred - exam: Deferred - Extremities Extremities exam: Normal inspection, Full ROM, Normal capillary refill, Other ( hips non tender, full ROM of both hips, no signs of pain). negative: Calf tenderness, Joint swelling, Pedal edema, Tenderness - Back Back exam: Reports: Normal inspection (no bruising or abrasions), Full ROM, Other (she sits up on her own with minimal assistance). Denies: CVA tenderness (R), CVA tenderness (L), Muscle spasm, Paraspinal tenderness, Rash noted, Tenderness, Vertebral tenderness - Neurological Neurological exam: Alert, CN II-XII intact, Other (Memory deficits, baseline per reports). negative: Motor sensory deficit - Psychiatric Psychiatric exam: Normal affect, Normal mood. negative: Agitated, Anxious - Skin Skin exam: Dry, Intact, Normal color, Warm Course Vital Signs 06/28/17 16:58 Temperature 97.9 F Pulse Rate 97 H Respiratory 18 Rate Blood Pressure 184/97 Pulse Ox 99 - Reevaluation(s) Reevaluation #1: The CT scans of the head and cervical spin were reviewed. Multiple chronic findings. No acute injuries from the fall. 06/28/17 18:43 06/28/17 18:50 No acute fracture of the pelvic or hips The patient denies any pain and is able to weight bear without pain Disposition Disposition: Discharge Clinical Impression: Fall Qualifiers: Encounter type: initial encounter Qualified Code(s): W19.XXXA - Unspecified fall, initial encounter Head contusion Qualifiers: Encounter type: initial encounter Contusion of head detail: scalp Qualified Code(s): S00.03XA - Contusion of scalp, initial encounter Disposition: Home, Self-Care Condition: (1) Good Instructions: Fall Prevention for Older Adults (ED) Additional Instructions: Return to the ED if you have any pain, headache, dizziness or concerns. Forms: Patient Portal Access Time of Disposition: 18:52 Quality - Quality Measures Quality Measures: N/A - Blood Pressure Screening Does Patient Have Any of the Following: No Blood Pressure Classification: Hypertensive Reading Systolic Measurement: 184 Diastolic Measurement: 97 Screening for High Blood Pressure: < Pre-Hypertensive BP, F/U Documented > [ [id number]] Pre-Hypertensive Follow-up Interventions: Referral to alternative/primary care provider.
--- NOTE | 2017-06-29 14:47 | CT SCAN REPORT ---
EXAM: CT OF THE HEAD WITHOUT CONTRAST HISTORY: FALL OFF A STOOL AT RESIDENTIAL. TECHNIQUE: Routine noncontrast CT examination of the head was obtained. Comparison: CT of the head without contrast dated 11/13/04. FINDINGS: There is mild dilatation of the subarachnoid spaces. The ventricles are at the upper limits of normal in size. Mild to moderate periventricular and subcortical white matter lucencies are scattered in each cerebral hemisphere , relatively symmetrically. These are nonspecific, but likely areas of chronic small vessel ischemia. No other area of abnormally increased or decreased attenuation is noted throughout the brain substance. No abnormal extraaxial fluid collection is seen. No skull fracture is identified. There is fluid signal within the sphenoid sinuses consistent with sinusitis. There is mild mucosal thickening within a few left ethmoid air cells and the inferior aspect of the left frontal sinus. Post cataract surgery changes are noted bilaterally. The orbits as visualized are otherwise unremarkable. IMPRESSION: 1. NO CT EVIDENCE OF AN ACUTE INTRACRANIAL ABNORMALITY NOR SKULL FRACTURE. 2. GENERALIZED ATROPHY. 3. MILD TO MODERATE WHITE MATTER LUCENCIES IN EACH CEREBRAL HEMISPHERE ARE NONSPECIFIC, BUT LIKELY AREAS OF CHRONIC SMALL VESSEL ISCHEMIA. 4. BILATERAL SPHENOID SINUSITIS. JOB NUMBER: [id number] [facility]
--- NOTE | 2017-06-29 14:56 | CT SCAN REPORT ---
EXAM: CT OF THE CERVICAL SPINE WITHOUT CONTRAST HISTORY: FALL OFF STOOL TODAY. TECHNIQUE: Thin collimation helical CT examination of the cervical spine was performed in the axial plane without intravenous contrast. Coronal and sagittal reformatted images are generated and reviewed. Comparison: CT of the cervical spine without contrast dated 01/24/16. FINDINGS: There is mild diffuse osteopenia. Minimal anterolisthesis of C4 on C5 is identified slightly more pronounced in the interval. Minor retrolisthesis of C5 on C36 is stable. The vertebral bodies are otherwise normal in alignment and height. No acute fracture, destructive bone lesion or prevertebral soft tissue swelling. Multilevel degenerative disk/degenerative end plate changes are identified primarily mild in degree though those at the C5-C6 level are mild to moderate. Posterior disk bulging and end plate spurring at the C5-C6 level causes borderline central canal stenosis. No other evidence of osseous cervical spinal stenosis. Multilevel bilateral facet arthropathy is identified most pronounced superiorly on the right where the changes are advanced. Multilevel bilateral neural foraminal narrowing redemonstrated, left greater than right secondary to uncovertebral joint and facet joint spurring. There is sphenoid sinusitis. A retention cyst is demonstrated in the floor of the right maxillary sinus. There is mild atherosclerotic calcification of the carotid bifurcations. No cervical mass nor adenopathy. Moderate biapical pleural and parenchymal scarring. IMPRESSION: 1. NO ACUTE FRACTURE, SUSPICIOUS SUBLUXATION, OR PREVERTEBRAL SOFT TISSUE SWELLING. 2. MULTILEVEL DEGENERATIVE CHANGES, DETAILED ABOVE. MINOR ANTEROLISTHESIS OF C4 ON C5 IS SLIGHTLY MORE PRONOUNCED THAN ON THE PRIOR EXAMINATION. MINIMAL RETROLISTHESIS OF C5 ON C6 IS STABLE. JOB NUMBER: [id number] [facility]
--- NOTE | 2017-06-29 15:01 | RADIOLOGY REPORT ---
EXAM: BILATERAL HIPS WITH PELVIS HISTORY: PAIN POST FALL. TECHNIQUE: An AP view of the pelvis was obtained as well as AP and frog leg lateral views of the right and left hips. Comparison: Unilateral right hip dated 01/24/16. Encounter: Initial. FINDINGS: There is diffuse osteopenia. Three cannulated screws are again noted affixing the proximal right femur. No acute fracture, dislocation, or destructive bone lesion is seen. Mild to moderate degenerative changes of each hip redemonstrated. Degenerative changes of the lower lumbar spine, sacroiliac joints and pubic symphysis also identified. IMPRESSION: 1. DIFFUSE OSTEOPENIA LIMITS EVALUATION. 2. NO ACUTE FRACTURE, DISLOCATION, NOR DESTRUCTIVE BONE LESION. 3. FIXATION SCREWS REDEMONSTRATED IN THE PROXIMAL RIGHT FEMUR. 4. DEGENERATIVE CHANGES. JOB NUMBER: [id number] MTDD
== END 2017-06-28 19:20 | disposition home or self-care (01) ==
LOC: ER 16:50
DX: S00.03XA Contusion of scalp, initial encounter (principal); M25.552 Pain in left hip; M25.551 Pain in right hip; W07.XXXA Fall from chair, initial encounter; Y93.89 Activity, other specified; Y92.129 Unspecified place in nursing home as the place of occurrence of the external cause; I10 Essential (primary) hypertension; F03.90 Unspecified dementia, unspecified severity, without behavioral disturbance, psychotic disturbance, mood disturbance, and anxiety
CPT/HCPCS: 70450; 72125; 73521; 99283; 99284

== ENCOUNTER 2018-03-22 10:34 | Inpatient (IN) | payer MEDICARE, MEDICAID ==
--- NOTE | 2018-03-22 11:22 | Emergency Department Record ---
History of Present Illness - General Chief Complaint: Difficulty Breathing Stated Complaint: PAULINA Time Seen by Provider: 03/22/18 10:50 Source: Patient, Family Mode of Arrival: Wheelchair Limitations: No limitations - History of Present Illness Initial Comments: The patient is here due to not feeling well for a week. Her daughter states she has just not been herself and has been very weak. She has not got out of bed in a few days and walked with her walker like she normally does. The patient has had mild PAULINA at times but has had no CP, cough, fever, AP, vomiting, diarrhea or fever. She does have a hx of mild dementia and that has been fairly stable per her daughter. Onset/Timin -: Week(s) Treatments Prior to Arrival: None - Related Data Home Oxygen Therapy: No Home Medications Medication Instructions Recorded Confirmed Last Taken Ascorbic Acid [Vitamin C] 1,000 mg PO BID 03/22/18 03/22/18 03/22/18 08:00 Dexamethasone [Decadron] PO QID PRN 03/22/18 Unknown Diclofenac Sodium [Diclo Gel] 2 gm TOP Q6H PRN 03/22/18 03/22/18 Unknown Diphenhydramine HCl [Benadryl] 25 mg PO Q6H PRN 03/22/18 03/22/18 Unknown Ferrous Sulfate 325 mg PO BID 03/22/18 03/22/18 03/22/18 08:00 Levothyroxine Sodium 100 mcg PO DAILY 03/22/18 03/22/18 03/22/18 07:00 Magnesium Hydroxide [Milk of 30 ml PO PRN 03/22/18 Unknown Magnesia] Allergies Allergy/AdvReac Type Severity Reaction Status Date / Time hydrocodone bitartrate Allergy Severe RAPID Unverified 08/09/17 10:14 [From Vicodin] HEART RATE Iodinated Contrast- Oral and Allergy Severe DIFFICULTY Unverified 08/09/17 10:14 IV Dye BREATHING [Iodinated Contrast Media - Oral and] morphine Allergy Severe DIFFICULTY Unverified 08/09/17 10:14 BREATHING Penicillins Allergy Intermediate RASH Unverified 08/09/17 10:14 meperidine HCl [From Demerol] Allergy Mild VOMITING Unverified 08/09/17 10:14 codeine Allergy Unknown PT UNSURE Unverified 08/09/17 10:14 OF REACTION diazepam [From Valium] AdvReac Severe ALTERED Unverified 08/09/17 10:14 MENTAL STATUS Travel Screening - Travel/Exposure Within Last 30 Days Have you traveled within the last 30 days?: No - Travel/Exposure Within Last Year Have you traveled outside the [place] in the last year?: No - Additonal Travel Details Have you been exposed to anyone with a communicable illness?: No - Travel Symptoms Symptom Screening: Weakness, Fatigue Review of Systems Constitutional: Reports: Malaise. Denies: Chills, Fever Eyes: Denies: Eye discharge ENT: Denies: Congestion Respiratory: Denies: Cough, Dyspnea Cardiovascular: Denies: Arrhythmia, Chest pain Endocrine: Reports: Fatigue Gastrointestinal: Denies: Nausea Genitourinary: Denies: Dysuria Musculoskeletal: Denies: Arthralgia Skin: Denies: Bruising Past Medical History - SOCIAL HISTORY Smoking Status: Never smoker Alcohol Use: None Alcohol Use Comment: pt states she is allergic to alcohol, doesn't like smell or taste Drug Use: None - RESPIRATORY Hx Respiratory Disorders: Yes Hx Sleep Apnea: Yes - CARDIOVASCULAR Hx Cardio Disorders: Yes Hx Hypertension: Yes - NEURO Hx Neuro Disorders: Yes Hx CVA: Yes (2009) Hx Headaches: Yes Hx Neuropathy: Yes Comment:: "my mind is going out on me"(01-27) - GI Hx GI Disorders: Yes Hx Abdominal Pain: Yes Hx Irritable Bowel: Yes Hx Nausea/Vomiting: Yes Hx Wt Loss/Wt Gain: Yes - Hx Genitourinary Disorders: Yes Hx Renal Disease: Yes - ENDOCRINE Hx Endocrine Disorders: Yes Hx Thyroid Disease: Yes (low) - MUSCULOSKELETAL Hx Musculoskeletal Disorders: Yes Hx Arthritis: Yes Hx Osteoporosis: Yes - PSYCH Hx Psych Problems: Yes Hx Anxiety: Yes Hx Depression: Yes - HEMATOLOGY/ONCOLOGY Hx Hematology/Oncology Disorders: No Family Medical History Any Significant Family History?: Yes Hx Diabetes: Father Physical Exam - General General Appearance: Alert, Cooperative, No acute distress - Head Head exam: Atraumatic, Normocephalic - Eye Eye exam: Normal appearance, PERRL - ENT Throat exam: Normal inspection. negative: Tonsillar erythema, Tonsillar exudate - Neck Neck exam: Normal inspection, Full ROM. negative: Tenderness - Respiratory Respiratory exam: Normal lung sounds bilaterally. negative: Respiratory distress - Cardiovascular Cardiovascular Exam: Irregular rhythm, Systolic murmur (2/6 (chronic)) - GI/Abdominal GI/Abdominal exam: Soft, Normal bowel sounds. negative: Tenderness - Extremities Extremities exam: Normal inspection, Full ROM, Normal capillary refill. negative: Tenderness - Neurological Neurological exam: Alert. negative: Motor sensory deficit, Oriented X3 (The pateint is oriented to name, place, and age but not date.) Course Vital Signs 03/22/18 03/22/18 10:37 10:50 Temperature 98.2 F Pulse Rate 101 H Respiratory 28 H Rate Blood Pressure 146/107 Pulse Ox 88 L 97 - Reevaluation(s) Reevaluation #1: The patient is doing better at this time and did urinate twice after the lasix. Her O2 sats are 96% on 2 L of O2. She is resting comfortably and denies any CP or SOB. I did discuss the CHF with the patient's daughter and the need for admission for further evaluation. I also did discuss the case with Dr. Dennison and he will admit the patient to the hospital. 03/22/18 12:49 Medical Decision Making - Data Complexity MDM Data: Labs Ordered and/or Reviewed, X-Ray Ordered and/or Reviewed, EKG Ordered and/or Reviewed - Lab Data Result diagrams: 03/22/18 11:28 03/22/18 11:28 - EKG Data -: EKG Interpreted by Me EKG: Abnormal EKG (Flipped T waves V2-4.) - Radiology Data Radiology results: Report reviewed (CXR: CHF, CMG, bilateral effusions L>R.) Disposition Disposition: Admit Clinical Impression: Weakness, DNR (do not resuscitate), CHF (congestive heart failure) Disposition: Still a Patient at [facility] Decision to Admit: Admit from ER Decision to Admit Date: 03/22/18 Decision to Admit Time: 12:51 Accepting Physician: Jesi Time Discussed w/Accepting Physician: 12:51 Condition: (2) Stable Forms: Patient Portal Access Time of Disposition: 12:51 Quality - Quality Measures Quality Measures: N/A - Blood Pressure Screening View Details: Yes Does Patient Have Any of the Following: Active Dx of HTN Blood Pressure Classification: Hypertensive Reading Systolic Measurement: 146 Diastolic Measurement: 107 Screening for High Blood Pressure: Patient Exclusion, Hx of HTN [G9744]
[2018-03-22 11:35] LABS: BASO % 0.1 % (0-6); EOS % 1.6 % (0-6); HEMATOCRIT 37.6 % (35.0-47.0); HEMOGLOBIN 11.5 gm/dl (11.6-16.0); LYMPH % 4.9 % (16-45); MEAN CELL VOLUME 83.2 fl (81-97); MEAN CORPUSCULAR HEMOGLOBIN 25.4 pg (27-33); MEAN CORPUSCULAR HGB CONC 30.6 g/dl (32-36); MEAN PLATELET VOLUME 9.5 fl (7.4-10.4); MONO % 7.2 % (0-9); PLATELET COUNT 212 K/uL (130-400); RED BLOOD COUNT 4.52 M/uL (3.80-5.40); WHITE BLOOD COUNT W/O DIFF 8.1 K/uL (4.2-12.2)
[2018-03-22 11:59] LABS: ANISOCYTOSIS 1+; HYPOCHROMIA 2+
[2018-03-22] MEDS ORDERED: FUROSEMIDE IV 40MG/4ML VIAL IVP ONE (11:59)
[2018-03-22 12:01] LABS: BLOOD UREA NITROGEN 23 mg/dL (8-23); CREATININE 0.6 mg/dL (0.5-0.9); EST GLOMERULAR FILTRATION RATE > 60 mL/min
[2018-03-22 12:02] LABS: TOTAL PROTEIN 6.4 g/dL (6.6-8.7)
[2018-03-22 12:04] LABS: GLUCOSE,RANDOM 99 mg/dL (74-109)
[2018-03-22 12:07] LABS: ALB/GLOB RATIO 1.5 (1.1-1.8); ALBUMIN 3.8 g/dL (4.0-5.0); ALKALINE PHOSPHATASE 69 U/L (45-87); ALT/SGPT 14 U/L (<33); AST/SGOT 24 U/L (10.0-35.0)
[2018-03-22 12:38] LABS: THYROID STIMULATING HORMONE 7.27 uIU/mL (0.270-4.20)
[2018-03-22] MEDS ORDERED: POTASSIUM CHLORIDE 20 MEQ TABLET PO ONE (12:40)
[2018-03-22 12:58] LABS: URINE APPEARANCE CLEAR; URINE BILIRUBIN NEGATIVE (NEGATIVE); URINE BLOOD TRACE-I (NEGATIVE); URINE COLOR YELLOW; URINE GLUCOSE (UA) NEGATIVE (NEGATIVE); URINE KETONE 15 mg/dL (NEGATIVE); URINE LEUKOCYTE ESTERASE NEGATIVE (NEGATIVE); URINE NITRITE NEGATIVE (NEGATIVE); URINE UROBILINOGEN 0.2 E.U./dL (0.20 - 1.00)
[2018-03-22 13:15] LABS: URINE BACTERIA 4+; URINE CALCIUM OXALATE CRYSTALS 1+ /hpf
[2018-03-22] MEDS ORDERED: CIPROFLOXACIN LACTATE/D5W 400 MG/200 ML BAG IVPB ONE (13:52)
[2018-03-22] MEDS ORDERED: CIPROFLOXACIN LACTATE/D5W 400 MG/200 ML BAG IVPB SCH (14:00)
[2018-03-22] MEDS ORDERED: NITROGLYCERIN 2% OINT 1GM PKT TOP ONE (14:00)
[2018-03-22] MEDS: ASPIRIN 325 MG TAB ENTERIC-COATED PO SCH (15:09)
[2018-03-22] MEDS ORDERED: PNEUM 13-VAL/PF 0.5 ML IM ONE (16:19)
[2018-03-22] MEDS: CIPROFLOXACIN LACTATE/D5W 400 MG/200 ML BAG IVPB SCH (23:42)
[2018-03-23] MEDS: LEVOTHYROXINE SODIUM 100 MCG TABLET PO SCH (06:16)
--- NOTE | 2018-03-23 07:19 | RADIOLOGY REPORT ---
EXAM: CHEST, TWO VIEWS HISTORY: DIFFICULTY BREATHING. TECHNIQUE: Frontal and lateral views of the chest were performed. Comparison: 09/28/15. FINDINGS: Cardiomegaly with mild congestion. Bilateral pleural effusions, left side greater than right. IMPRESSION: 1. CARDIOMEGALY WITH MILD CONGESTION. 2. BILATERAL PLEURAL EFFUSIONS, LEFT SIDE GREATER THAN RIGHT. JOB NUMBER: [id number] MTDD
[2018-03-23] MEDS ORDERED: FUROSEMIDE IV 20MG/2ML VIAL IVP SCH (10:00)
[2018-03-23] MEDS ORDERED: POTASSIUM CHLORIDE 20 MEQ TABLET PO SCH (10:00)
[2018-03-23] MEDS ORDERED: FUROSEMIDE IV 40MG/4ML VIAL IVP SCH (10:00)
[2018-03-23] MEDS: CIPROFLOXACIN LACTATE/D5W 400 MG/200 ML BAG IVPB SCH ×2 (10:21→22:34)
[2018-03-23] MEDS: ASPIRIN 325 MG TAB ENTERIC-COATED PO SCH (10:22)
[2018-03-23] MEDS ORDERED: ZINC OXIDE 28.35 GM TUBE TOP ONE (10:34)
--- NOTE | 2018-03-23 11:19 | Rehab Evaluation ---
Patient Information - Patient Information Diagnosis: Acute CHF Ordered Treatment: PT Evaluate and Treat Status: Initial Evaluation Surgery: No History: Detail (Pt presented to ED on 03/22/18 with difficulty in breathing after not having felt well for about a week. Admitted to [facility] for medical management of acute CHF.) Past Medical/Surgical Hx: PAST MEDICAL/SURGICAL HISTORY Past Surgical History apendix 12 yo hysterectomy 50 yo adhesions 25 yo blood clots right leg right leg screws PMH - Respiratory Hx Respiratory Disorders Yes Hx Sleep Apnea Yes Comment: pt states cannot get mask small enough for her face PMH - Cardiovascular Hx Cardiovascular Disorders Yes Hx Hypertension Yes PMH - Neuro Hx Neurological Disorders Yes Hx Cerebrovascular Accident Yes: 2009 Hx Dementia Yes Hx Headaches Yes Hx Neuropathy Yes Comment: "my mind is going out on me"(01-27) PMH - GI Hx Gastrointestinal Disorders Yes Hx Abdominal Pain Yes Hx Irritable Bowel Yes Hx Nausea/Vomiting Yes Hx Weight Loss/Weight Gain Yes PMH - Hx Genitourinary Disorders Yes Patient No Hx Renal Disease Yes PMH - Endocrine Hx Endocrine Disorders Yes Hx Diabetes No Hx Thyroid Disease Yes: low PMH - Musculoskeletal Hx Musculoskeletal Disorders Yes Hx Arthritis Yes Hx Osteoporosis Yes Comment: states she can feel those screws in her hip PMH - Psych Hx Psychiatric Problems Yes Hx Anxiety Yes Hx Depression Yes PMH - Hematology/Oncology Hx Hematology/Oncology No Disorders Premorbid Status: Detail (Not able to get clear history from patient, and family not present during evaluation. Chart review indicates that patient ambulates w/walker.) Social History: Detail (Chart review indicates that patient resides in a inter[facility] customer [facility] care facility; she is unable to say specifically where she lives.) Precautions: [place], Fall - Time With Patient Total Time Spent With Patient (Min): 40 Treatment Procedures: Detail (PT Evaluation, assisted nrsg with positioning and mobility for placing ointment and pads on patient's spine.) Subjective Information - Subjective Information Per Patient (Pt denied pain, but reported dizziness and just wanting to lay down. Hard of hearing or possibly has difficulty understanding conversation.) Objective Data - Pain Pain Present: No - Mental Status Patient Orientation: Person (Pt identified herself and gave date of readily; not oriented to place, time, or circumstances.) - Visual Perception Appears within normal limits for therapeutic activities - ROM Within normal limits (AROM in B UE's and LE's is grossly within normal limits in all planes of motion.) - Strength/Tone Not within normal limits (Pt demonstrated 3/5 strength in major muscle groups of proximal UE's and LE's.) - Coordination Appears within normal limits for therapeutic activities - Bed Mobility Needs Assist (Pt required moderate assist to come to sitting at edge of bed from reclined position, and heavy moderate assist to return to supine. She required moderate assist to roll to each side for bedding management and positioning in sidelying. Max assist for scooting up in bed.) - Transfers Needs Assist (Not attempted at this time due to poor sitting balance.) - Balance Balance Sitting: Poor (Pt leaned heavily to the left at times, but was able to sit unsupported for brief periods (a few seconds at a time).) Balance Standing: Poor (Not tested at this time, due to poor sitting balance.) - Sensation Intact - Gait Detail (Not assessed at this time.) Therapy Assessment - Therapy Assessment Detail (Pt exhibits significant weakness for mobility activities and currently is experiencing poor sitting balance or activity tolerance. She is a good candidate for inpatient physical therapy as her medical condition stabilizes.) Problem List - Problem List Physical Therapy Problem List: Detail (1. Requires assist for bed mobility. 2. Poor sitting balance. 3. Poor activity tolerance. 4. Gait and transfers not assessed.) Goals - Goals Physical Therapy Goals: 1. Pt will be independent w/bed mobility. 2. Pt will perform sit/stand transfers with supervision only. 3. Pt will ambulate household distances with front-wheeled walker w/CGA. Prognosis - Prognosis Moderate Plan - Plan Physical Therapy Plan: Pt will be seen 1-2 times/day M-F for mobility, transfer , gait training, and therapeutic exercise to facilitate strengthening and endurance.
[2018-03-23] MEDS ORDERED: ZINC OXIDE 28.35 GM TUBE TOP PRN (12:20)
--- NOTE | 2018-03-23 13:00 | Cardiology Consult ---
DATE OF CONSULTATION: 03/22/18 REASON FOR CONSULTATION: Acute congestive heart failure. HISTORY: Ms. Sultana is an 83-year-old female who was brought from the assisted living center in [place] to [facility] for complaint of loss of coordination. Ms. Sultana herself is hard of hearing. She has a history of hypothyroidism, hypertension, and hyperlipidemia. She has no known history of coronary artery disease. She says for the past one week she has had progressive shortness of breath and weakness. Upon presentation to [facility] an ECG demonstrated sinus rhythm with nonspecific ST-T changes in the anterior precordial leads. Her daughter was present and states she wants conservative medical management. PAST SURGICAL HISTORY: Nothing significant per the patient. MEDICATIONS: Include ascorbic acid 1,000 mg b.i.d., ferrous sulfate 325 mg b.i.d., Levothyroxine 100 mcg daily, and Dexamethasone on a prn basis. ALLERGIES: SHE HAS MULTIPLE ALLERGIES INCLUDING HYDROCODONE, IODINE, MORPHINE, PENICILLIN, DIAZEPAM, AND MEPERIDINE, MOST OF THE REACTIONS ARE UNKNOWN. SOCIAL HISTORY: She currently lives in an assisted living center. PHYSICAL EXAMINATION: She is afebrile, pulse rate is 59 b.p.m., blood pressure is 145/99, respirations are 19. She is 98% on two liters. Lungs show no breath sounds on the left side, decreased breath sounds on the right. On cardiac exam there is a systolic ejection murmur radiating to the axilla, 3/6. Abdomen is soft. Extremities demonstrate mild edema bilaterally. Her white count is 8.1, hemoglobin is 11.5, platelets are 212,000, sodium is 137, potassium is 3.3, BUN is 23, creatinine is 0.6, Pro-BNP is 15,127, initial Troponin is 0.3. IMPRESSION/PLAN: MS. SULTANA IS AN 83-YEAR-OLD FEMALE WHO IS CACHECTIC IN APPEARANCE AND PRESENTS WITH ACUTE DIASTOLIC CONGESTIVE HEART FAILURE. ECHOCARDIOGRAM DEMONSTRATES AN EJECTION FRACTION OF 55-60% WITH GRADE 3 DIASTOLIC DYSFUNCTION, MODERATE LEFT ATRIAL ENLARGEMENT, AND MODERATE TO SEVERE MITRAL REGURGITATION. LARGE LEFT SIDED PLEURAL EFFUSION WAS NOTED. AGREE WITH IV DIURESIS OF FUROSEMIDE 40 MG DAILY. URINE CULTURES ARE PENDING. ASPIRIN SHOULD BE GIVEN AND SERIAL TROPONIN 'S WILL BE OBTAINED. AGAIN PATIENT DOES NOT WISH FOR ANY INVASIVE TESTING OTHERWISE. WILL CONTINUE TO FOLLOW. JOB NUMBER: [id number] [facility]
--- NOTE | 2018-03-23 13:30 | History and Physical Report ---
DATE: 03/23/2018 DATE OF ADMISSION: 03/22/2018 CHIEF COMPLAINT: Dyspnea, weakness, decreased level of consciousness. HISTORY OF PRESENT ILLNESS: This 83-year-old female lives at [facility]. She has mild dementia. The daughter states that in the last week she has become more weak, unable to ambulate, difficulty with swallowing which has been a chronic problem, and her breathing has gotten worse over the last week. She came into the emergency department, admitted by Dr. Vizcarra with a diagnosis of congestive heart failure, weakness, and do not resuscitate. Her chest x-ray showing bilateral pleural effusion left greater than right with mild pulmonary congestion. EKG showing normal sinus rhythm, no acute changes, some T-wave nonspecific changes in V1 and V2 and V3 and V4. Her troponin in the emergency department was slightly elevated in the indeterminate range. It was 0.037. Her brain natriuretic peptide was 15,127. Her urine showing RBCs of 3-6, WBCs 6-10, epithelial cells 3-6, bacteria 4+, calcium oxalate 1+, specific gravity 1.030 with 30 mg/dL protein and ketones of 15 mg/dL. Her white count was 8100, hemoglobin was 11.5, potassium 3.3, sodium 137, BUN 23, creatinine 0.8, sugar 99. Her thyroid-stimulating hormone was elevated at 7.27. Cardiology consult was obtained with Dr. Hayden. The patient was admitted to the hospital and given IV 40 of Lasix and O2 therapy. Her pulse ox was running 88% on room air. MEDICATIONS: 1. Benadryl 25 mg at h.s. 2. Diclofenac (Voltaren) gel 2 g topically p.r.n. to her sore joints. 3. Vitamin C 1000 mg b.i.d. 4. Ferrous sulfate 325 b.i.d. 5. Levothyroxine 100 mcg a day. 6. Tylenol 1000 mg q.6 h. p.r.n. 7. Calcium/magnesium. 8. Antacid, Tums 1 q.8 h. p.r.n. 9. Lactase dairy digest 9000 units q.3 h. p.r.n. 10. Sodium chloride 1 g daily. 11. Milk of magnesia 30 mg p.r.n. constipation. 12. Topical Benadryl for itching. 13. Decadron. The dosage is not clear on the chart. Will have to look at the [facility] med sheets to determine that. ALLERGIES: HYDROCODONE, IODINATED CONTRAST, PENICILLIN, DEMEROL, CODEINE, VALIUM. PAST MEDICAL AND SURGICAL HISTORY: Appendectomy at 12 years of age, hysterectomy at 50 years of age, adhesions 25 years ago, blood clots in the right leg, right leg screws, CVA in 2010, sleep apnea. She has had a history of hypertension. She has had some weight loss. She has had urinary tract infections in the past. She has hypothyroidism, arthritis, osteoporosis, anxiety and depression. SOCIAL HISTORY: She has no alcohol history. No drug use. Never smoked cigarettes. FAMILY HISTORY: Father had diabetes. REVIEW OF SYSTEMS: HEENT: No upper respiratory infection symptoms, cough, cold, or congestion. However, she has had some difficulty breathing in the last week and decreased energy levels. Cardiovascular: She denies any chest pain or palpitations but she was short of breath. Respiratory: She denies a cough but she is short of breath and not ambulating the way she normally does with a walker. Gastrointestinal: No nausea, vomiting, diarrhea, black stools, or bloody stools. Genitourinary: No dysuria, hematuria, frequency, or burning on urination. She has had chronic urinary tract infections in the past, multiple. Musculoskeletal: She has arthritis. Neurological: She had a CVA in the past which started her memory problems. GENETIC TECHNOLOGIST: She has had a hysterectomy. Endocrine: She has hypothyroidism. Integument: No rash, ulcers, change in moles, or yellow skin. She does have a brown discoloration on the left cheek which I believe was evaluated by Dr. Dawn. We will have to confirm that. PHYSICAL EXAMINATION: VITALS: Height 5 feet 3 inches, weight 76 pounds. We will check that on a scale today. Seems director institution than what she normally is. Temperature 97.6, pulse 68, blood pressure 94/52, respiratory rate 16, pulse ox 97% on 1L O2 nasal cannula. HEENT: Pupils are equal, round, and reactive to light and accommodation. Extraocular muscles are intact. Throat is clear. Nose is clear. Tympanic membranes are arango. MENTAL STATUS: She is better than she was when she came in. She is talking and carrying on appropriate conversation but forgetful. She is alert. She realizes she is not in the normal room that is normally in at [facility]. She does not seem to understand she is in the hospital. She is unaware of the date but she knows her name. She is alert but oriented only to her name, not time or place. She has dementia. NECK: Supple. No jugular venous distention. No hepatojugular reflux. No carotid bruits. Thyroid is smooth. CARDIOVASCULAR: Regular rate and rhythm without murmurs, clicks, rubs, or gallops. RESPIRATORY: She had some breathing difficulties but that seems to be improved at this time. ABDOMEN: Soft, nontender. No masses palpated. EXTREMITIES: No pitting edema. No cyanosis. BREASTS: Exam deferred. GYNECOLOGICAL: Exam deferred. RECTAL: Exam deferred. GENITALIA: Normal female genitalia. NEUROLOGIC: Cranial nerves II-XII intact. No gross defects. Sensation normal, strength normal. Deep tendon reflexes equal bilaterally with Babinski negative. IMPRESSION: 1. Dyspnea. 2. Weakness. 3. Pulmonary congestion, mild. 4. Large left pleural effusion, small right pleural effusion. 5. Possible congestive heart failure. Ejection fraction 55% to 60% with a brain natriuretic peptide of 15,000. 6. Urinary tract infection, on Cipro IV. 7. Dementia. 8. Arthritis. 9. Hypothyroidism. 10. History of urinary tract infections. 11. History of hyponatremia. PLAN: Cautious diuresis. At this point I am going to hold the diuresis because she seems to be at dry weight right now except for the pleural effusion. We will continue her home medications. Cardiology consult will be reviewed once we get the typed copy or I will call Dr. Hayden. She does have moderately elevated pulmonary pressures on her echocardiogram. [facility]
[2018-03-24] MEDS: LEVOTHYROXINE SODIUM 100 MCG TABLET PO SCH (06:25)
[2018-03-24 06:48] LABS: CREATININE 1.4 mg/dL (0.5-0.9)
[2018-03-24] MEDS: NITROGLYCERIN 2% OINT 1GM PKT TOP SCH ×2 (08:13→20:49)
[2018-03-24] MEDS: CIPROFLOXACIN LACTATE/D5W 400 MG/200 ML BAG IVPB SCH ×2 (10:14→22:15)
[2018-03-24] MEDS: ASPIRIN 325 MG TAB ENTERIC-COATED PO SCH (10:19)
[2018-03-24] MEDS: CARVEDILOL 3.125 MG TABLET PO SCH ×2 (10:20→22:26)
--- NOTE | 2018-03-24 11:05 | Physical Therapy Tx Note ---
Physical Therapy Tx Note - Treatment Note Physical Therapy Tx Note: Detail (The patient has been placed on hold per physican's verbal order due to medical status.) Physical Therapy Problem List: Detail (1. Requires assist for bed mobility. 2. Poor sitting balance. 3. Poor activity tolerance. 4. Gait and transfers not assessed.) Physical Therapy Goals: 1. Pt will be independent w/bed mobility. 2. Pt will perform sit/stand transfers with supervision only. 3. Pt will ambulate household distances with front-wheeled walker w/CGA. Physical Therapy Plan: Pt will be seen 1-2 times/day M-F for mobility, transfer , gait training, and therapeutic exercise to facilitate strengthening and endurance.
--- NOTE | 2018-03-24 11:48 | Occupational Therapy Tx Note ---
Occupational Therapy Tx Note - Treatment Note Occupational Therapy Treatment Note: Detail (Pt on hold this am per nursing.)
[2018-03-25] MEDS: LEVOTHYROXINE SODIUM 100 MCG TABLET PO SCH (07:17)
[2018-03-25] MEDS: NITROGLYCERIN 2% OINT 1GM PKT TOP SCH (07:23)
[2018-03-25] MEDS: CARVEDILOL 3.125 MG TABLET PO SCH ×2 (09:42→22:39)
[2018-03-25] MEDS: ASPIRIN 325 MG TAB ENTERIC-COATED PO SCH (09:42)
[2018-03-25] MEDS ORDERED: CIPROFLOXACIN LACTATE/D5W 400 MG/200 ML BAG IVPB SCH (22:00)
[2018-03-26] MEDS: ACETAMINOPHEN 325 MG TAB PO PRN ×2 (03:09→23:13)
[2018-03-26] MEDS: LEVOTHYROXINE SODIUM 100 MCG TABLET PO SCH (07:28)
[2018-03-26] MEDS: SERTRALINE HCL 50 MG TABLET PO SCH (10:57)
[2018-03-26] MEDS: CARVEDILOL 3.125 MG TABLET PO SCH ×2 (10:57→23:13)
[2018-03-26] MEDS: ASPIRIN 325 MG TAB ENTERIC-COATED PO SCH (10:57)
[2018-03-26] MEDS: CIPROFLOXACIN HCL 500 MG TABLET PO SCH (10:57)
[2018-03-27] MEDS: LEVOTHYROXINE SODIUM 100 MCG TABLET PO SCH (07:01)
--- NOTE | 2018-03-27 07:22 | Discharge Note ---
VTE H&P Assessment - Risk for VTE Risk for VTE: Yes Risk Level: Moderate Risk Assessment Date: 03/27/18 Risk Assessment Time: 07:00 VTE Orders Placed or Will Be Placed: Yes Discharge Medications - Discharge Medications Home Medications: Ambulatory Orders Sodium Chloride 1 gm PO DAILY 06/28/17 [Last Taken 03/21/18 18:00] Acetaminophen [Mapap] 1,000 mg PO Q6H PRN 08/09/17 [Last Taken Unknown] Calcium Carb/Magnesium Hydrox [Antacid 675-135 mg Tab Chew] 1 each PO Q8H PRN tab.chew 08/09/17 [Last Taken Unknown] Lactase [Dairy Digest] 9,000 unit PO Q3H PRN tab 08/09/17 [Last Taken Unknown] Ascorbic Acid [Vitamin C] 1,000 mg PO BID 03/22/18 [Last Taken 03/22/18 08:00] Diphenhydramine HCl [Benadryl] 25 mg PO Q6H PRN 03/22/18 [Last Taken Unknown] Ferrous Sulfate 325 mg PO BID 03/22/18 [Last Taken 03/22/18 08:00] Levothyroxine Sodium 100 mcg PO DAILY 03/22/18 [Last Taken 03/22/18 07:00] Aspirin [Adult Aspirin] 81 mg PO DAILY #30 tablet. 03/27/18 [Last Taken Unknown] Carvedilol [Coreg] 3.125 mg PO BID #60 tablet 03/27/18 [Last Taken Unknown] Ciprofloxacin HCl [Cipro] 500 mg PO DAILY #5 tablet 03/27/18 [Last Taken Unknown ] Clopidogrel Bisulfate [Plavix] 75 mg PO DAILY #30 tab 03/27/18 [Last Taken Unknown] Levothyroxine Sodium [Synthroid] 100 mcg PO DAILYTHY #30 tablet 03/27/18 [Last Taken Unknown] Lisinopril [Zestril] 2.5 mg PO DAILY #30 tablet 03/27/18 [Last Taken Unknown] Sertraline HCl [Zoloft] 25 mg PO DAILY #30 tablet 03/27/18 [Last Taken Unknown] Discharge Note - Date Date of Discharge Note: 03/27/18 Disposition: Inpatient Rehab Facility Condition: (2) Stable Additional Instructions: follow up with Dr. Dennison after she is discharged from the alf. patient needs cardiac rehab and rehab for deconditioning and possible shelter placement at alf patient is a DNR Prescriptions: Aspirin [Adult Aspirin] 81 mg PO DAILY #30 tablet. Carvedilol [Coreg] 3.125 mg PO BID #60 tablet Ciprofloxacin HCl [Cipro] 500 mg PO DAILY #5 tablet Clopidogrel Bisulfate [Plavix] 75 mg PO DAILY #30 tab Levothyroxine Sodium [Synthroid] 100 mcg PO DAILYTHY #30 tablet Lisinopril [Zestril] 2.5 mg PO DAILY #30 tablet Sertraline HCl [Zoloft] 25 mg PO DAILY #30 tablet Forms: Patient Portal Access Reason for Not Ordering Anticoagulation Therapy at [place]: Clinical Trial Participant
[2018-03-27 07:41] LABS: BASO % 0.2 % (0-6); EOS % 1.7 % (0-6); GRAN % 80.1 % (47-80); HEMATOCRIT 38.8 % (35.0-47.0); HEMOGLOBIN 11.9 gm/dl (11.6-16.0); LYMPH % 9.5 % (16-45); MEAN CELL VOLUME 83.1 fl (81-97); MEAN CORPUSCULAR HEMOGLOBIN 25.5 pg (27-33); MEAN CORPUSCULAR HGB CONC 30.7 g/dl (32-36); MEAN PLATELET VOLUME 9.4 fl (7.4-10.4); MONO % 8.5 % (0-9); PLATELET COUNT 268 K/uL (130-400); RED BLOOD COUNT 4.67 M/uL (3.80-5.40); RED CELL DISTRIBUTION WIDTH 28.1 % (11.5-14.5)
[2018-03-27 07:55] LABS: CREATININE 1.8 mg/dL (0.5-0.9)
[2018-03-27] MEDS ORDERED: CLOPIDOGREL 75MG TABLET PO SCH (10:00)
[2018-03-27] MEDS ORDERED: ENOXAPARIN 30 MG/0.3 ML SYR SQ SCH (10:00)
[2018-03-27] MEDS ORDERED: LISINOPRIL 5 MG TABLET PO SCH (10:00)
[2018-03-27] MEDS: SERTRALINE HCL 50 MG TABLET PO SCH (10:53)
[2018-03-27] MEDS: CARVEDILOL 3.125 MG TABLET PO SCH (10:53)
[2018-03-27] MEDS: CIPROFLOXACIN HCL 500 MG TABLET PO SCH (10:53)
[2018-03-27] MEDS: ASPIRIN 325 MG TAB ENTERIC-COATED PO SCH (10:53)
--- NOTE | 2018-03-27 11:43 | Physical Therapy Tx Note ---
Physical Therapy Tx Note - Treatment Note Physical Therapy Tx Note: Detail (The patient refused PT this am.) Physical Therapy Problem List: Detail (1. Requires assist for bed mobility. 2. Poor sitting balance. 3. Poor activity tolerance. 4. Gait and transfers not assessed.) Physical Therapy Goals: 1. Pt will be independent w/bed mobility. 2. Pt will perform sit/stand transfers with supervision only. 3. Pt will ambulate household distances with front-wheeled walker w/CGA. Physical Therapy Plan: Pt will be seen 1-2 times/day M- for mobility, transfer , gait training, and therapeutic exercise to facilitate strengthening and endurance.
--- NOTE | 2018-03-27 12:30 | Discharge Summary ---
DISCHARGE DIAGNOSES: 1. Anterior myocardial infarction. 2. Coronary artery disease. 3. Left pleural effusion. 4. Urinary tract infection secondary to E coli, being treated with Cipro once a day for 5 more days. Because of her renal status, it is only dosing once a day. 5. Dementia. 6. Do not resuscitate. ATTENDING PHYSICIAN: Thierno Dennison DO REASON FOR HOSPITALIZATION: Dyspnea, weakness, decreased level of consciousness. This 83-year-old female presented from [facility]. She has mild dementia. The daughter states in the last week she has been more weak. Unable to ambulate, difficulty with swallowing which is a chronic problem from her CVA, and her breathing has gotten worse. She came to the emergency department, admitted by Dr. Vizcarra with diagnosis of congestive heart failure, weakness, and do not resuscitate. No invasive procedures per family. SIGNIFICANT FINDINGS: Cardiac enzymes, troponin T was elevated during the hospitalization day 2 and went up to 0.095. Her EKG changes on 03/24/2018, she had ST elevation in V3 and V4 and T-wave inversion V1-V5. WBC on discharge 6000, hemoglobin 11.9, MCH is low at 25.5. Her electrolytes, one set is pending and electrolytes on discharge show sodium 136, potassium 4.3, chloride 94, BUN 37, creatinine 1.4, sugar 102. These are her electrolytes on 03/24/2018. Her troponin T increased. In the emergency it was slightly elevated at 0.037 and then went up to 0.95. CK-MB was normal at 2.5. Her TSH was elevated at 7.27; however, her thyroxine was just recently increased about 3-4 weeks ago to 100 mcg/day from 88 mcg/day, so I would like to have this rechecked in a month to see if it has stabilized in the normal range or if she needs to have it bumped up again. Chest x-ray report showing cardiomegaly with mild congestion, bilateral pleural effusion left side greater than right side. THERAPY PROVIDED: Cardiology consultation with Dr. Hayden. His impression was an 83-year-old cachectic female with acute diastolic congestive heart failure. Echocardiogram revealed ejection fraction of 55% to 60% with grade 3 diastolic dysfunction, moderate left atrial enlargement, [id number] mitral regurgitation, large left-sided pleural effusion with IV diuresis with Lasix. He recommended aspirin and serial troponins. The patient and family do not wish any invasive procedures. He was following as needed. The patient was given aspirin therapy, also started on beta-blockers with Coreg 3.125 daily, started on a low dose of lisinopril, started on Plavix 75 mg once a day once we determined that we were not going to tap off the pleural effusion. She was also started on Sertraline 25 mg a day because she was agitated and possibly depressed, which seems to have improved her mentation. She was started on a low dose of lisinopril 2.5 mg once a day on discharge. She will continue Cipro 500 mg daily for 5 more days for her urinary tract infection. Aspirin will be adjusted down to 81 mg a day. We are checking to see if she still needs iron therapy and vitamin C. That lab was drawn on the day of discharge. HOSPITAL COURSE: The patient had a very slow recovery course. She was not very motivated because of her dementia to get up and move around. Family wanted no invasive procedures done, not to be transferred to [place] for a heart catheterization when she had her myocardial infarction in the hospital on day 2 or 3. CONDITION ON DISCHARGE: Improving but guarded because of her comorbid conditions. She is a do not resuscitate. DISCHARGE INSTRUCTIONS: [facility] and [facility]hab for deconditioning. She should follow up with Dr. Dennison after discharge from the [facility]. DISCHARGE MEDICATION: 1. Aspirin 81 mg daily. 2. Carvedilol 3.125 b.i.d. 3. Cipro 500 mg daily for 5 days. 4. Plavix 75 mg daily. 5. Levothyroxine 100 mcg daily. 6. Sertraline 25 mg daily. 7. Lisinopril 2.5 mg daily. We will decide on the iron and vitamin C after the labs come back if she should continue that or not. At this point, it looks like she is stable with her hemoglobin. We will stop the iron and vitamin C. [facility]
--- NOTE | 2018-03-27 12:40 | History and Physical Report ---
INPATIENT CERTIFICATION: Admit to inpatient care. Based on my medical assessment, after consideration of patient's risk factors, age, comorbidities, and patient's presenting symptoms and acuity, I expect that this patient will remain in the hospital greater than or equal to 2 midnights and that the services needed warrant inpatient care because of dyspnea, CHF, coronary artery disease. Estimated length of stay is 3 days. The patient may reasonably be expected to be discharged or transferred to another hospital within 96 hours after admission to [facility]. I certify that my determination is in accordance with my understanding of Medicare requirements for reasonable and necessary inpatient services. E[facility]AL
== END 2018-03-27 13:25 | DRG 293 ==
LOC: ER 10:34 → MEDSURG 13:39
PROVIDERS: ADMIT Emergency Medicine; ATTEND Emergency Medicine
DX: I50.9 Heart failure, unspecified (principal); R53.1 Weakness; I10 Essential (primary) hypertension; E03.9 Hypothyroidism, unspecified; N28.9 Disorder of kidney and ureter, unspecified; G62.9 Polyneuropathy, unspecified; M19.90 Unspecified osteoarthritis, unspecified site; Z66 Do not resuscitate; Z86.73 Personal history of transient ischemic attack (TIA), and cerebral infarction without residual deficits; F03.90 Unspecified dementia, unspecified severity, without behavioral disturbance, psychotic disturbance, mood disturbance, and anxiety
CPT/HCPCS: 71046; 80048; 80053; 81001; 82553; 83540; 83880; 84443; 84484; 85025; 85027; 90670; 93005; 93010; 93306; 94760; 96374; 99285; J1650; J1940